=== PATIENT | male | born 1950 | race Caucasian/White ===

== ENCOUNTER 2025-02-04 12:48 | Outpatient (AMB) | payer OTHER, SELFPAY ==
--- NOTE | 2025-02-04 13:08 | A.OFFPC_ITS ---
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 He admits to taking his medications as prescribed without adverse reactions. Prior PCP? - Dr. Morales, [facility] Last office visit/CPE - 05/2024 Last CPE - A year ago Last labs - 11/2024 Acute issue(s) - None Past Medical History - HTN, DM, HLD, palpitations, thyroid di sease, murmur, memory loss, sleep apnea (was prescribed CPAP, stopped using because it never worked for me ), cataract both eyes Surgical History - CABG, cholecystectomy, tonsillectomy, cataract surgery both eyes Family History - Dad: Cardiovascular disease, diabetes , hypertension, hyperlipidemia, - Mom: Thyroid disease Social History - Nonsmoker. Does not vape. Drinks 1 bee r twice weekly. Denies recreational drug use - Has been making healthy dietary choice s. Walks regularly. Difficulty staying asleep, sleeps an average of 8 hours, interrupted Health maintenance - Last eye exam was in 02/2024 with [facility]. He has an appointment scheduled with them in 02/2025 - Last dental visit was almost 50 years ago; encouraged to schedule an appointment with his dentist for routine dental care - Last tetanus vaccine was in 2023. [address] not available - He has not been vaccinated for shingle s - He is vaccinated for pneumonia. Record not available - He is up-to-date on the flu vaccine - Last colonoscopy about 11 years ago: n mayte. Referred to [facility] for a colonoscopy Specialists - [facility] - [facility] Medical History (Updated 02/04/25 @ 14:19 by Alli Schafer CNP) Memory loss H/O thyroid disease Diabetes Heart palpitations High cholesterol High blood pressure Surgical History (Updated 02/04/25 @ 13:32 by Rita Lopez MA) Hx of CABG History of tonsillectomy History of cholecystectomy Family History (Updated 02/04/25 @ 13:35 by Rita Lopez MA) Father High blood pressure High cholesterol Diabetes Cardiovascular disease Mother H/O thyroid disease Social History (Updated 02/04/25 @ 13:19 by Rita Lopez MA) Housing: Apartment Patient Tobacco Use Status: Never used Tobacco e-Cigarette/Vaping Use: Never Used Second Hand Smoke Exposure: No service: No Current occupational status: retired Cognitive needs: No Hearing needs: No Vision needs: Yes Questionnaire PHQ-9 Over the last 2 weeks, how often have you been bothered by any of the following problems? 1. Little interest or pleasure in doing things: not at all 2. Feeling down, depressed, or hopeless: not at all 3. Trouble falling or staying asleep, or sleeping too much: several days 4. Feeling tired or having little energy: several days 5. Poor appetite or overeating: not at all 6. Feeling bad about yourself - or that you are a failure or have let yourself or your family down: not at all 7. Trouble concentrating on things, such as reading the newspaper or watching television: not at all 8. Moving or speaking so slowly that other people could have noticed. Or the opposite - being so fidgety or restless that you have been moving around a lot more than usual: not at all 9. Thoughts that you would be better off or of hurting yourself in some way: not at all Total score: 2 Depression Screening Interpretation: Negative Depression Screening Done: Yes 67615 - PHQ-9 Billing: Yes Source: Developed by Drs. Addi Harden, Lilian Schwarz, Jacoby Guardado and colleagues, with an educational everett from [employer]. Thrive Questionnaire Date Thrive assessed: 02/04/25 I am a: Patient What is your living situation today?: I have a steady place to live Within the past 12 months, did the food you bought not last and you didn't have the money to get more?: Never true Within the past 12 months, did you worry whether your food would run out before you got money to buy more?: Never true Do you have trouble paying for medicines?: No Do you have trouble getting transportation to medical appointments?: No Do you have trouble paying your heating and electricity bill?: No Do you have trouble taking care of your child, family member or friend?: No Do you have trouble with day-to-day activities such as bathing, preparing meals, shopping, managing finances, etc.?: No Are you currently unemployed and looking for a job?: Yes Are you interested in more education?: No Please select the resources that you would like help with: Job search/training Currently or been in a relationship where the following occur: No concerns reported THRIVE Score: 0 AUDIT C Alcohol Use Questionnaire (AUDIT-C) 1. How often do you have a drink containing alcohol?: 2-3 times a week 2. How many drinks containing alcohol do you have on a typical day when you are drinking?: 1 or 2 3. How often do you have six or more drinks on one occasion?: Never Total Score: 3 Score Reviewed/Action Taken: Yes LUPE-7 AMB Questionnaire LUPE-7 Date LUPE - 7 assessed: 02/04/25 Feeling nervous, anxious, or on edge: 0 = Not at all Not being able to stop or control worryin = Not at all Worrying too much about different things: 0 = Not at all Trouble relaxin = Not at all Being so restless that it is hard to sit still: 0 = Not at all Becoming easily annoyed or irritable: 0 = Not at all Feeling afraid as if something awful might happen: 0 = Not at all Total LUPE-7 score (0-4 normal; 5-9 mild; 10-14 moderate; 15-21 severe): 0 Source: Developed by Drs. Addi Harden, Lilian Schwarz, Jacoby Guardado and colleagues, with an educational everett from [employer]. LUPE-7 Assessment Billing LUPE-7 Assessment Tool: LUPE-7 Assessment 03354 Review of Systems Const Details: Denies chills, Denies fatigue, Denies fever(s), Denies headache(s) and Denies weakness HEENT Denies change in vision, Denies dizziness, Denies headache(s), Denies hearing l oss, Denies nasal congestion, Denies sinus pain, Denies sinus pressure and Denies sore throat Card Denies chest pain, Denies lightheadedness, Denies dyspnea and Denies other (palpitations) Resp Denies cough, Denies dyspnea and Denies wheezing GI Denies abdominal pain, Denies melena, Denies hematochezia, Denies change in bowel habits, Denies dyspepsia and Denies nausea Denies hematuria and Denies dysuria Musc Denies abnormal gait, Denies myalgias, Denies arthralgias, Denies numbness and Denies tingling Skin/Breast Denies rash, Denies unusual bruising and Denies wounds Neuro Denies abnormal gait, Denies dizziness, Denies headache(s), Denies memory loss, Denies numbness, Denies Sensory deficit (Neuro), Denies tingling and Denies weakness Psych Denies anxiety, Denies depression and Reports memory loss Endo Denies cold intolerance, Denies fatigue, Denies heat intolerance, Denies polydipsia and Denies polyuria Mina/Lymph Denies easy bleeding and Denies easy bruising Aller/Immun Denies wheezing Physical exam (Primary Care) Vital Signs: Last Vital Signs Temp 97.5 F 02/04/25 13:20 Pulse 50 02/04/25 13:20 Resp 16 02/04/25 13:20 BP 126/60 02/04/25 13:47 Pulse Ox 99 02/04/25 13:20 Oxygen Delivery Method Room Air 02/04/25 13:20 BMI result Body Mass Index 32.5 Tobacco/Smoking Status: Tobacco use Status Tobacco use date assessed 02/04/25 02/04/25 13:16 Patient Tobacco Use Status Never used Tobacco 02/04/25 13:20 e-Cigarette/Vaping Use Never Used 02/04/25 13:20 PHQ-9: PHQ-9 Score PHQ-9: Total score 2 02/04/25 13:38 Depression Screening Interpretation: Negative Thrive Assessment: Date of Thrive Assessment Date Thrive assessed 02/04/25 02/04/25 13:38 Currently or been in a relationship where the following occur: No concerns reported Const Other: General: no acute distress, well developed, alert and awake Nutritional Appearance: well nourished Orientation/consciousness: patient oriented x3 [facility] Head: Yes normocephalic and Yes atraumatic Ears: hearing grossly normal bilaterally, Impacted cerumen both ears occluding the TMs General nose exam: Normal external nose present and Normal nares present Mouth: Normal oral and palatal mucosa present and moist mucous membranes Teeth and gingiva: Partial front upper denture, several missing teeth Throat: Yes oropharynx normal Eyes Pupils: Equal, round and reactive pupils present and Pupil accommodation reflex normal EOM: EOMs intact bilaterally Neck Neck: Yes normal visual inspection, Yes no lymphadenopathy and Yes trachea midline Thyroid: Thyroid normal Carotids: no bruits Lymphatic: no lymphadenopathy noted Chest Chest palpation & inspection: normal inspection of the chest Resp Effort & Inspection: normal respiratory effort Auscultation: clear to auscultation bilaterally Cardio Rate: regular rate Rhythm: regular rhythm Heart sounds: S1 normal heart sound present, S2 normal heart sound present, no gallops, no murmurs and no rubs Bruits: no abdominal aortic bruits and no carotid bruits GI Palpation (GI): No Abdominal aortic bruit present, Soft to palpation, nontender, No hepatosplenomegaly present and No Rebound tenderness present Auscultation: normal bowel sounds General: Yes no CVA tenderness Back/Spine/Pelvis Back: no CVA tenderness Cervical Spine: cervical ROM normal and No Cervical spine tenderness Thoracic/Lumbar Spine: thoraco-lumbar ROM normal, No pain with thoraco-lumbar ROM, No thoracic spinal tenderness and No lumbar spinal tenderness Skin General: warm and dry. Normal skin color. Normal skin turgor Lesions: no lesions Rashes: no rashes Trauma: no lacerations or abrasions Wounds: no wounds Nails: normal Neuro General: patient oriented x3, gait normal and CN's II-XI intact bilaterally Cranial nerves: Yes Equal, round and reactive pupils present Cognition (Neuro): normal cognition Gait exam (Neuro): Normal gait present Motor exam (neuro): 5/5 motor strength present throughout Sensory Exam: No Sensory deficit (Neuro) Deep tendon reflexes (DTR's): Right patellar reflex intensity grade: 2+ and Left patellar reflex intensity grade: 2+ Extrem General: Yes normal to inspection, No edema and No calf tenderness Psych Appearance: grossly normal Affect: normal affect Attitude: cooperative Thought process: Normal thought process present Immunizations Boostrix Tdap 2.5 Lf unit-8 mcg-5 Lf/0.5 mL intramuscular syringe Performing Provider: Alli Schafer CNP Performing Location: [facility] Administered by: Jigar Morton RN on 02/04/25 14:18 Dose Route Admin Location Dispensed Lot Number Expiration Date [facility] Gas [employer]itter 0.5 mL IM Left Deltoid 0.5 mL [id number] 03/19/27 [id number] [employer] Total Dispensed Waste 0.5 mL 0 % VIS Given Date VIS Provided VIS Publication Date 02/04/25 Single Vaccine 21 Eligibility Eligibility Date Funding Source Not [facility] Eligible 02/04/25 Private Coding Level of Care Code Tele New Pt Level 4 (54940) New Pt Prev Care >65yr (56094) Diagnoses Normal physical examination, routine Z00.00 High blood pressure I10 Diabetes E11.9 Impacted cerumen of both ears H61.23 Colon cancer screening Z12.11 Vaccine counseling Z71.85 Sleep apnea G47.30 Obesity (BMI 30-39.9) E66.9 Laboratory tests ordered as part of a complete physical exam (CPE) Z00.00 Additional Codes LUPE-7 Assessment Billing - LUPE-7 Assessment Tool: LUPE-7 Assessment 71406 ([id number]) PHQ-9 - 14268 - PHQ-9 Billing: Yes ([id number]) Assessment & Plan Assessment & Plan (1) Normal physical examination, routine: Code(s): Z00.00 - Encounter for general adult medical examination without abnormal findings Category: Medical Plan: No significant functional limitation noted, except for slightly unsteady gait with tandem test. Continue current treatment regimen. Perform lab work before next visit. Follow-up for bilateral ear lavage and labs review in 2-4 weeks. Return sooner with symptoms or concerns. Verbalized understanding and agreed with the plan. (2) High blood pressure: Code(s): I10 - Essential (primary) hypertension Category: Medical Plan: Resting blood pressure is 126/60, within goal of less than 130/80. Continue current treatment regimen. Low-sodium diet encouraged. Will continue to monitor. Verbalized understanding and agreed with the plan. (3) Diabetes: Code(s): E11.9 - Type 2 diabetes mellitus without complications Category: Medical Plan: Continue current treatment regimen. Followed by [facility]. (4) Impacted cerumen of both ears: Code(s): H61.23 - Impacted cerumen, bilateral Category: Medical Plan: Impacted cerumen to both ears occluding the TMs. No significant hearing impairment. Debrox as prescribed. Follow-up for bilateral ear lavage in 2-4 weeks. Verbalized understanding and agreed with the plan. (5) Colon cancer screening: Code(s): Z12.11 - Encounter for screening for malignant neoplasm of colon Category: Medical Plan: Last colonoscopy about 11 years ago: normal. Rferred to [facility] for a colonoscopy. (6) Vaccine counseling: Code(s): Z71.85 - Encounter for immunization safety counseling Category: Medical Plan: He has not been vaccinated for shingles. Instructed on the importance of vaccination and encouraged to get vaccinated for shingles at the local pharmacy. Verbalized understanding and agreed with the plan. (7) Sleep apnea: Code(s): G47.30 - Sleep apnea, unspecified Category: Medical Plan: Reports difficulty staying asleep, sleeps an average of 8 hours, interrupted. He prescribed CPAP but stopped using it because it never worked for him. Instructed on sleep hygiene. May take melatonin as needed. Follow-up as needed. Verbalized understanding and agreed with the plan. (8) Obesity (BMI 30-39.9): Code(s): E66.9 - Obesity, unspecified Category: Medical Plan: He currently weighs 193 lb, BMI is 32.5. Healthy diet and routine exercise/weight management encouraged. Follow-up as needed. Verbalized understanding and agreed with the plan. (9) Laboratory tests ordered as part of a complete physical exam (CPE): Code(s): Z00.00 - Encounter for general adult medical examination without abnormal findings Category: Medical Plan: Fasting labs ordered as part of a complete physical exam. Advised to fast for at least 10 hours before getting labs drawn. May drink water Verbalized understanding and agreed with treatment plan. Orders: Orders Lipid Panel Today Z00.00 - Encounter for general adult medical examination without abnormal findings Microalbumin, Random (w Creat) Today Z00.00 - Encounter for general adult medical examination without abnormal findings TSH reflex Free T4 Today Z00.00 - Encounter for general adult medical examination without abnormal findings UA CC w/rflx Micro + Cult Today Z00.00 - Encounter for general adult medical examination without abnormal findings PSA, Ultra Sensitive Today Z00.00 - Encounter for general adult medical examination without abnormal findings TDaP Immunization Today Z23 - Encounter for immunization Complete Blood Count Auto Diff Today Z00.00 - Encounter for general adult medical examination without abnormal findings Comprehensive [place]. Panel Fast Today Z00.00 - Encounter for general adult medical examination without abnormal findings Vitamin D 25-OH Total Today Z00.00 - Encounter for general adult medical examination without abnormal findings Hemoglobin A1c Today E11.9 - Type 2 diabetes mellitus without complications Referrals Gastroenterology Referral Z12.11 - Encounter for screening for malignant neoplasm of colon Medications: New carbamide peroxide 6.5% (Debrox) 5 drps otic (ears) DAILY 15 mL 0RF 4 days
[2025-02-04 13:20] VITALS: BP 143/64; PULSE 50; RESP 16; TEMP 36.4; O2SAT 99; BMI 32.5
[2025-02-04 13:47] VITALS: BP 126/60
--- OUTSIDE RECORDS SUMMARY | 2025-02-04 14:57 | XMS_ITS | Clinical Summary ---
Author Organization [facility] Address [address] [facility] [place] [address] Phone Care Team Providers Care Wireline Supervisor Name Role Phone Jose Crane Primary Care Provider [phone] Allergies No known active allergies Medications cyanocobalamin, vitamin B-12, (VITAMIN B-12 ORAL) Take by mouth if needed. Active aspirin 81 mg EC tablet Take 1 tablet (81 mg total) by mouth 1 (one) time each day. Active atorvastatin (LIPITOR) 80 mg tablet Take 1 tablet (80 mg total) by mouth 1 (one) time each day. 10/26/2017 Active dilTIAZem SR (CARDIZEM SR) 120 mg 12 hr capsule Take 1 capsule (120 mg total) by mouth 1 (one) time each day. 10/26/2017 Active empagliflozin (Jardiance) 25 mg tablet Take 1 tablet (25 mg total) by mouth 1 (one) time each day. 05/24/2021 Active ezetimibe (ZETIA) 10 mg tablet Take 1 tablet (10 mg total) by mouth 1 (one) time each day. Active levothyroxine (SYNTHROID, LEVOTHROID) 100 mcg tablet Take 1 tablet (100 mcg total) by mouth 1 (one) time each day. Do not take it on Tuesday Active metFORMIN (GLUCOPHAGE) 500 mg tablet Take 2 tablets (1,000 mg total) by mouth 2 (two) times a day with meals. Active metoprolol succinate (TOPROL-XL) 50 mg 24 hr tablet Take 1 tablet (50 mg total) by mouth 1 (one) time each day. 10/26/2017 Active insulin glargine (LANTUS) 100 unit/mL injection Inject 56 Units under the skin at bedtime. Active Active Problems Problem Noted Date Diagnosed Date Non-rheumatic aortic stenosis 05/28/2024 Type 2 diabetes mellitus wit hout complication ([facility] V24, [facility] V28) 04/16/2024 Assessment & Plan (05/28/2024 3:42 PM EST): Diabetes is inadequately controlled. I defer this management to his primary care team. KEN (obstructive sleep apnea) 04/16/2024 Assessment & Plan (05/28/2024 3:42 PM EST): The patient has untreated obstructive sleep apnea. He has tried a variety of masks without success. We discussed the importance of avoiding sedation and alcohol. I also indicated that the patient might benefit from sleeping with a backpack to keep him from sleeping on his back and to reduce the effects of his sleep apnea syndrome. Orders: ECG 12 lead Hypertension 04/16/2024 Assessment & Plan (05/28/2024 3:42 PM EST): Blood pressure is well-controlled on his present medical regimen. He is adherent to antihypertensive medical therapy. I am not making any changes in his medical regimen at this time. Orders: ECG 12 lead Hyperlipidemia 04/16/2024 Assessment & Plan (05/28/2024 3:42 PM EST): Hyperlipidemia has responded favorably to medical therapy with high-dose atorvastatin and ezetimibe. His last LDL cholesterol was 74 mg/dL. This will be followed by his primary care team. Orders: ECG 12 lead GERD (gastroesophageal reflux disease) CAD (coronary artery disease) 04/16/2024 Assessment & Plan (05/28/2024 3:42 PM EST): Jose has a history of coronary artery bypass graft surgery in October 2014. He had a PARK to his LAD and saphenous vein grafts were placed to his PDA and to his second circumflex marginal artery. He has had no evidence of angina and no evidence of congestive heart failure. He does have a shift in his QRS axis on his electrocardiogram but no clear-cut evidence of infarction or active ischemia. I feel that the patient is at fairly low risk for cardiac complications of gallbladder surgery. Orders: ECG 12 lead History of FL (myocardial infarction) 04/16/2024 Encounters Date Type Department Care Team Description 12/24/2024 Telephone [facility] - [facility] [address] [facility] [address] [place] [address] Jigar Sifuentes MD 12/11/2024 2:00 PM EDT Office Visit [facility] - [place] [address] [place] [address] Carlos Hutchison DPM Controlled type 2 diabetes with neuropathy ([facility] V24, [facility] V28) (Primary Dx); Pain in toes of both feet; Arthritis of both feet; Dermatophytosis, nail from Last 3 Months Surgical History Surgery Date Site/Laterality Comments CORONARY ARTERY BYPASS GRAFT PROCEDURE: HISTORICAL CABG COLONOSCOPY 01/12/2014 PROCEDURE: HISTORICAL COLONOSCOPY; COMMENT: neg exam, tiny polyp removed from rectum. Medical History Medical History Date Comments CAD (coronary artery disease) DX :CAD (coronary artery disease) History of FL (myocardial infarction) DX:History of FL (myocardial infarction) Hypertension DX:Hypertension Hyperlipidemia DX:Hyperlipidemi a GERD (gastroesophageal reflux disease) DX:GERD (gastroesophageal reflux disease) H/O Araceli thyroiditis DX:H/O Araceli thyroiditis Type 2 diabetes mellitus wit hout complication ([facility] V24, [facility] V28) DX:Type 2 diab etes mellitus without complication (HCC) KEN (obstructive sleep apnea) DX :KEN (obstructive sleep apnea) Family History Medical History Relation Name Comments Diabetes Father Relation Name Status Comments Father Social History Tobacco Use Types Packs/Day Years Used Date Smoking Tobacco: Never Smokeless Tobacco: Never Alcohol Use Standard Drinks/Week Comments Yes 0 (1 standard drink = 0.6 oz pur e alcohol) an occasional beer Sex and Gender Information Value Date Recorded Sex Assigned at Male 07/31/2024 7:17 AM EST Legal Sex Male 5:39 AM EST Gender Identity Male 07/31/2024 7:17 AM EST Sexual Orientation Not on file Obstetrics History Last Filed Vital Signs Vital Sign Reading Time Taken Comments Blood Pressure 116/56 05/28/2024 2:38 PM EST Pulse 67 05/28/2024 2:38 PM EST Temperature - - Respiratory Rate - - Oxygen Saturation 97% 05/28/2024 2:38 PM EST Inhaled Oxygen Concentration - - Weight 88.5 kg (195 lb) 10/08/2024 2:13 PM EDT Height 162.6 cm (5' 4 ) 10/08/2024 2:13 PM EDT Body Mass Index 33.47 10/08/2024 2:13 PM EDT Plan of Treatment Upcoming Encounters Date Type Department Care Team (Late st Contact Info) Description 02/11/2025 9:40 AM EDT Office Visit [facility] - [facility] [address] [place] [address] [address] [place] [phone] Neftali Garner NP [address] [place] [address] [address] [place] [id number] 02/12/2025 1:45 PM EDT Office Visit Orth[facility] Surgery - [place] [address] [facility] [address] [place] [phone] Carlos Hutchison, SHIV [address] [facility] [address] [place] [address] 04/16/2025 1:30 PM EST Ancillary Procedure [facility] Cardiology [facility] [address] [facility] [address] [place] [phone] Health Maintenance Due Date Last Done Comments Diabetes: Annual Foot Exam 02/02/1962 Diabetes: Annual Retina Eye Exam 02/02/1962 DTaP,Tdap,and Td Vaccines (1 - Tdap) 02/02/1971 Pneumococcal Vaccine: 50+ Years (1 of 2 - PCV) 02/02/1971 Zoster Vaccines (1 of 2) 02/02/2002 RSV Immunization Adult Patients (1 - Risk 60-74 years 1-dose series) 2012 Cholesterol Screening (Lipid Panel) 05/09/2022 Colorectal Cancer Screening: Colonoscopy 05/09/2022 Falls Risk Assessment 05/09/2022 Hepatitis C Screening 05/09/2022 Medicare Annual Wellness Visit 05/09/2022 Social Influencers of Health Screening 05/09/2022 Diabetes: Blood Sugar Control Test (HGBA1C) 03/19/2023 09/17/2022 Depression Screening 05/30/2024 COVID-19 Vaccine ( season) 2025 04/09/2024, 03/31/2023, 10/15/2021, Additional history exists Influenza Vaccine (#1) 2025 , 05/04/2022, 06/01/2021 Diabetes: Annual GFR (Glomerular Filtration Rate) 09/18/2025 09/18/2024, 09/17/2022 Hypertension/CHF/CAD Annual BMP Blood Test 09/18/2025 09/18/2024, 09/17/2022 Diabetes: Annual Urine Albumin-Creatinine Ratio (uACR) 09/19/2025 09/19/2024 HIB Vaccines Aged Out No longer eligi ble based on patient's age to complete this topic HPV Vaccines Aged Out No longer eligi ble based on patient's age to complete this topic Hepatitis A Vaccines Aged Out No long er eligible based on patient's age to complete this topic Hepatitis B Vaccines Aged Out No long er eligible based on patient's age to complete this topic IPV Vaccines Aged Out No longer eligi ble based on patient's age to complete this topic MMR Vaccines Aged Out No longer eligi ble based on patient's age to complete this topic Meningococcal ACWY Vaccine Aged Out N o longer eligible based on patient's age to complete this topic Meningococcal B Vaccine Aged Out No l onger eligible based on patient's age to complete this topic RSV Immunization Patients Under 20 months Aged Out No longer eligible based on patient's age to complete this topic Varicella Vaccines Aged Out No longer eligible based on patient's age to complete this topic Procedures Procedure Name Priority Date/Time Associated Diagnosis Comments ANNUAL BMP BLOOD TEST Routine 09/17/2022 HEMOGLOBIN A1C Routine 09/17/2022 from Last 3 Months or Most Recently Relevant to Health Maintenance Results * Annual BMP Blood Test (09/17/2022) Annual BMP Blood Test Abstracted Historical Provider HEALTH MAINTENANCE Final Result * Hemoglobin A1c (09/17/2022) Hemoglobin A1C 0.0 % Comment:No interpretation, a bstracted Blood Venous blood specimen / Unknown Historical Provider LAB BLOOD ORDERABLES Aida l Result from Last 3 Months or Most Recently Relevant to Health Maintenance Insurance [employer] Care Teams Wireline Supervisor Relationship Specialty Start Date End Date Jose Crane DO [address] [place], [place] PCP - General 09/06/17
--- OUTSIDE RECORDS SUMMARY | 2025-02-04 14:57 | XMS_ITS | Clinical Summary ---
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 Active atorvastatin (LIPITOR) 80 MG tablet Take 80 mg by mouth daily. 09/01/19 23 Active aspirin 81 MG EC tablet Take 81 mg by mouth daily. Active metoprolol succinate (TOPROL-XL) 50 MG 24 hr tablet Take 50 mg by mouth daily. Active metFORMIN (GLUCOPHAGE-XR) 500 MG 24 hr tablet Take 2,000 mg by mouth daily with dinner. Active insulin glargine 100 unit/mL (3 mL) InPn injection penIndications:Typ e 2 diabetes mellitus with peripheral neuropathy Inject 56-60 Units under the skin nightly at bedtime. 60 mL 2 02/21/20 24 Active Additional Information Patient taking differently:56-60 Units SubcutaneousOnce, In the morning, Reported on 10/09/2024 empagliflozin (JARDIANCE) 25 mg tabletIndications: Type 2 diabetes mellitus with peripheral neuropathy Take 1 tablet (25 mg total) by mouth daily. 90 tablet 1 05/15/20 24 Active levothyroxine (SYNTHROID, LEVOTHROID) 100 MCG tabletIndications: Acquired hypothyroidism Take 1 tablet (100 mcg total) by mouth every morning. 90 tablet 1 10/10/19 25 Active HUMALOG KWIKPEN INSULIN 100 unit/mL kwikpenIndications :Type 2 diabetes mellitus with peripheral neuropathy Inject 6 Units under the skin 3 (three) times a day with meals. 15 mL 3 10/10/19 25 Active insulin pen needles, disposable, 32 gauge x NdleIndications:Ty pe 2 diabetes mellitus with peripheral neuropathy 1 each by Miscellaneous route 4 (four) times a day before meals and nightly. 200 each 3 10/10/19 25 Active Active Problems Problem Noted Date Diagnosed Date Osteopenia of multiple sites 05/19/2023 Assessment & Plan (12/09/2023 7:08 PM EDT): See above. No indication for treatment. Discussed importance of adequate calcium, vitamin D intake, regular weightbearing exercises and fall prevention. Repeat DEXA after 04/11/2025 at [facility] Assessment & Plan (05/19/2023 4:40 PM EST): Screening DEXA done on 04/11/2023 because of primary hyperparathyroidism. Osteopenia at the femoral neck and lumbar spine and normal forearm reading. 10-year calculated fracture risk by FRAX is not high enough to warrant antiresorptive treatment or consider parathyroid surgery. We discussed basic physiology of bone loss. The importance of adequate calcium and vitamin D intake, regular weightbearing exercises and fall prevention. Will monitor parathyroid related labs every 6 to 12 months and DEXA in 2 years. Primary hyperparathyroidism 01/06/2023 Overview (05/19/2023): Labs in August 2022 continued to show hypercalcemia 11.1. At that time PTH was not measured. Patient stopped taking his calcium supplement since the end of 11/2022. Labs on 12/23/2022 showed normal calcium of 9.8 with elevated PTH of 92 and low normal phosphorus 2.9. 24-hour urine calcium was normal 150 mg. Phosphorus clearance was elevated at 19.16, TRP low 80.9% both consistent with primary hyperparathyroidism. Calcium clearance/creatinine clearance was 0.011. DEXA on 04/11/2023 showed osteopenia at the lumbar spine with T-score -1.2 and femoral neck with T-score -1.7 Assessment & Plan (06/29/2024 5:57 PM EST): Labs in August 2022 continued to show hypercalcemia 11.1. At that time PTH was not measured. Patient stopped taking his calcium supplement since the end of 11/2022. Labs on 12/23/2022 showed normal calcium of 9.8 with elevated PTH of 92 and low normal phosphorus 2.9. 24-hour urine calcium was normal 150 mg. Phosphorus clearance was elevated at 19.16, TRP low 80.9% both consistent with primary hyperparathyroidism. Calcium clearance/creatinine clearance was 0.011. DEXA on 04/11/2023 showed osteopenia at the lumbar spine with T-score -1.2 and femoral neck with T-score -1.7. No history of fragility fractures. Recent calcium level 10.0 with albumin 3.8. 25 OHD and PTH not available. No clear-cut surgical indication at this point. We will continue to monitor labs. Repeat DEXA after 04/11/2025. Assessment & Plan (12/09/2023 7:07 PM EDT): Patient continues to have high normal calcium with elevated PTH and normal vitamin D level and previous workup also suggested primary hyperparathyroidism. His recent DEXA from 04/11/2023 reviewed showing osteopenia of the femoral neck with T-score - 1.7 and lumbar spine with T-score -1.2. No history of fragility fractures. No clear-cut surgical indication at this point. We will continue to monitor labs. Repeat DEXA in 2 years. Assessment & Plan (05/19/2023 4:37 PM EST): Patient continues to have high normal calcium with elevated PTH and normal vitamin D level and previous workup also suggested primary hyperparathyroidism. He is recent DEXA fro 04/11/2023 reviewed showing osteopenia of the femoral neck with T-score -1.7 lumbar spine with T-score -1.2. No history of fragility fractures. No clear-cut surgical indication at this point. We will continue to monitor labs. Repeat DEXA in 2 years. Assessment & Plan (02/22/2023 4:05 PM EDT): Labs in August continued to show hypercalcemia 11.1. At that time PTH was not measured. Patient stopped taking his calcium supplement since the end of 11/2022. Labs on 12/23/2022 showed normal calcium of 9.8 with elevated PTH of 92 and low normal phosphorus 2.9. 24-hour urine calcium was normal 150 mg. Phosphorus clearance was elevated at 19.16, TIP level 80.9% both consistent with primary hyperparathyroidism. Calcium clearance/creatinine clearance was 0.011. We again discussed diagnosis, possible surgical indications. So far patient has no surgical indication. Denies any fractures or kidney stone. We are waiting for his DEXA to be scheduled. If that is normal we will continue to monitor PTH and serum calcium level and continue to observe for surgical indication. Assessment & Plan (01/06/2023 9:16 PM EDT): Last labs in August continue to show with hypercalcemia 11.1. At that time PTH was not measured. Patient has not had 24-hour urine studies and DEXA yet. Orders entered. We repeatedly discussed basic parathyroid physiology, surgical indications. Will rediscuss management after labs and DEXA reviewed. Hyperlipidemia 09/17/2022 Hypertension 09/17/2022 Type 2 diabetes mellitus with peripheral neuropa thy 09/17/2022 Overview (05/19/2023): 2 DM, Dx 2000. CAD, status post three-vessel CABG in 10/2014. Reported gastroparesis on lowest dose Trulicity-no major symptoms on 4.5 mg Trulicity. Assessment & Plan (10/11/2024 1:21 PM EDT): Control is poor based upon the patient's recall of his SMBG readings and his recent A1C of 10.4%. No frequent or severe hypoglycemia. In the past he was not able to tolerate trulicity. Discussed to help improve his control will start prandial insulin at meals. Discussed timing of prandial insulin in relation to meals. Continue to work on eating healthier and being active. To call or message with any issues managing his glucose levels. Up to date with opho. Recent labs reviewed, labs ordered to be done prior to next visit Assessment & Plan (06/29/2024 5:58 PM EST): Poor control based on recent A1c of 11.5. Patient explains this with holiday food. He is taking Lantus 60 units in the morning, Jardiance 25 mg in the morning and metformin 2000 mg daily. Reports fasting glucose in the 160s. No frequent or severe hypoglycemia. -Encouraged to work on carbohydrate controlled meal plan. -Increase physical activity -Adjust Lantus by 2 to 4 units to get fasting glucose between the 80s to 130s -Discussed the importance to keep blood sugars between the 80s to 180 range to decrease risk of postsurgical complications after cholecystectomy -Reviewed symptoms, prevention and treatment of hypoglycemia. -Call with blood sugar problems Assessment & Plan (02/27/2024 12:12 PM EDT): Control is improving based upon the patient's recall of his SMBG readings. No frequent or severe hypoglycemia. Will maintain his regimen. Continue to work on eating healthy and being active. To call or message with any issues managing his glucose levels. Up to date with ophtho. Labs ordered today Assessment & Plan (12/09/2023 7:06 PM EDT): Worsened control, last A1c 10.2% in mid October. Patient was without his Tresiba and Trulicity for about a month. Tresiba was switched to Lantus, taking 56 units in the morning. He just restarted the Trulicity 4.5 mg weekly. He remains on metformin and Jardiance. No frequent or severe hypoglycemia. Weight is down 5 pounds. Lipids close to target and urine microalbumin/creatinine ratio normal as of mid October. Up-to-date with eye exam, reports frequent blurriness with or without glasses. Next eye exam due in 02/2024. Recommended to continue current treatment. Call the office if having issues filling his prescriptions. Titrate Lantus by 2 to 4 units to keep fasting sugars between 80-130s. Reviewed symptoms, prevention and treatment of hypoglycemia. Call if blood sugar below 70 or over 250 repeatedly continue to work on healthy meal and regular exercise. Labs before next visit in 3 months. Assessment & Plan (05/19/2023 4:28 PM EST): Improved control. Last A1c 7.9% in 03/2023. Taking 52 to 56 units of Tresiba in the morning consistently. Remains on 25 mg Jardiance daily and 1000 mg metformin twice a day as well as 4.5 mg Trulicity once a week. He reported slow gastric emptying diagnosed 3 to 4 years ago while on the lowest dose of Trulicity. His current symptom is early satiety what does not bother him much since help to cut back on his portions by 50%. We discussed that Trulicity can provoke gastroparesis and advised to hold the Trulicity if worsening symptoms, nausea, vomiting, abdominal pain develops. His lipids are at target, LDL 56 in 10/2022 while on 80 mg of atorvastatin. He is status post three-vessel CABG in 10/2014, denies any chest pain. Does have some dyspnea on exertion. Blood pressure at target. Urine microalbumin/creatinine ratio normal in 03/2023. He is up-to-date with eye exam, report from 02/2023 reviewed, no diabetic retinopathy. Discussed titration off Tresiba to keep fasting glucose between 80-130. Continue to work on healthier food choices and increase exercise. Reviewed symptoms, prevention and treatment of hypoglycemia. Call if blood sugar below 70 or over 250 repeatedly. Assessment & Plan (02/22/2023 4:10 PM EDT): Poor control suggested by higher A1c of 9% in 11/2022. Patient reports fasting blood sugars in the 140-160 range while taking between 52 and 56 units of Tresiba in the morning consistently. He remains on maximum dose of Jardiance, Trulicity and metformin and he admits to drinking about 40 ounces of sugary drinks daily lately. Suggested to cut out the sugary drinks and replace it with water. Continue to work on healthy meal choices and portion control. Increase physical activity as tolerated. Reviewed how to titrate the Tresiba to get fasting sugars between 80-130. He will increase the dose by 4 units for now and continue to adjust. Reviewed symptoms, prevention and treatment of hypoglycemia. Call if blood sugar below 70 or over 250 repeatedly. He is dilated eye exam is scheduled in 02/2023. He sees instrument maintenance supervisor for routine care every 2 months. Assessment & Plan (01/06/2023 9:21 PM EDT): Suboptimal control by last A1c of 8.6% in 08/2022. Reported fasting glucose is in the 150s while taking 52 to 56 units of Tresiba U200 daily. He just increased his Tresiba to 4.5 mg weekly last Tuesday. He remains on metformin 2000 mg daily and Jardiance 25 mg daily. Suggested to continue to work on healthy meal plan and increase physical activity as tolerated. Continue current treatment. Call if blood sugar below 70 or over 250 repeatedly. Scheduled to see his budget consultant in December. He is followed by podiatry for routine care every 2 months. His renal function is normal. Will have fasting labs soon. Assessment & Plan (09/17/2022 1:59 PM EDT): Control is reasonable based upon the patient's recall of his SMBG readings. No frequent or severe hypoglycemia. He has to change his victoza to trulicity due to insurance coverage. He was on trulicity in the past and is fine with the switch. Will send the prescription and send any needed Pas. Continue to work on eating healthy and being active. To call or message with any issues managing his glucose levels. Up to date with ophtho. Labs ordered today Acquired hypothyroidism 09/17/2022 Assessment & Plan (10/11/2024 1:13 PM EDT): Will check levels to determine if medication adjustments are needed Assessment & Plan (06/29/2024 5:52 PM EST): Clinically and biochemically euthyroid. Last TSH 1.54 in 01/2024 while taking 6 tablets/week of the 100 mcg levothyroxine. -Continue current treatment -Reviewed symptoms of under and over replacement, patient to call if concern. -Repeat TSH with next labs Assessment & Plan (02/27/2024 12:06 PM EDT): Will check levels to determine if medication adjustments are needed Assessment & Plan (11/21/2023 1:57 PM EDT): Clinically euthyroid. Last TSH normal at 3.55 in 04/2023. Continue current treatment. Recheck TSH with next A1c in 3 months. Assessment & Plan (05/19/2023 4:31 PM EST): Clinically and biochemically euthyroid. Last TSH remains high normal 3.55 in 04/2023 while taking a daily average dose of 86 mcg levothyroxine ( 100 mcg x 6 / week). Suggested to change prescription to the 88 mcg tablet and take 1 tablet daily but patient prefers to continue current dose. Reviewed symptoms of under and over replacement, patient to call if concerned. Assessment & Plan (02/22/2023 4:07 PM EDT): Clinically and biochemically euthyroid. Last TSH 3.96 on 12/23/2022 while taking 100 mcg levothyroxine 6 days/week. Reviewed symptoms of under and over replacement, patient to call if concerned. Monitor TSH at least yearly or as clinically indicated. Assessment & Plan (01/06/2023 9:18 PM EDT): Clinically and biochemically euthyroid on 100 mcg levothyroxine 6 days/week. Last TSH 0.84 in 08/2022. Reviewed symptoms of under and over replacement, patient to call if concerned. Monitor TSH Assessment & Plan (09/17/2022 1:45 PM EDT): Will check levels to determine if medication adjustments are needed. Taking 1 tablet 6 days a week and skipping Saturdays Vitamin D deficiency, unspecified 09/17/2022 Assessment & Plan (10/11/2024 1:13 PM EDT): He has not been taking his vitamin D supplement as he thought he was told to stop it. He is going to resume taking his vitamin D supplement. Will order labs to check levels with his next A1C Assessment & Plan (06/29/2024 5:52 PM EST): Last vitamin D level was low normal at 30.6 in 10/2023 while getting about 2500 IU D3 from his supplement. He will continue this dose. Monitor. Assessment & Plan (12/09/2023 7:08 PM EDT): Last vitamin D level was low normal at 30.6 in 10/2023 while getting about 2500 IU D3 from his supplement. He will continue this dose. Monitor. Assessment & Plan (05/19/2023 4:33 PM EST): Level normalized by 12/23/2022 after he took 6 weeks of 50,000 units of D2 which was ended in mid November. Was taking 400 IU D3 daily for a while and since March he thinks he is getting 1000 IU daily from a vitamin D gummy. He is last vitamin D level was low normal at 28.7. Would continue to 1000 IU daily maintenance dose. Assessment & Plan (02/22/2023 4:06 PM EDT): Level normalized by 12/23/2022 after he took 6 weeks of 50,000 units 52 which was ended in mid November. Currently not on maintenance dose. Suggested to add 1000 IU D3 daily [id number]. Will monitor. Assessment & Plan (01/06/2023 9:17 PM EDT): Vitamin D level was low at 28 in 08/2022 when 50,000 units vitamin D2 weekly started. Will recheck level and adjust dose. Avoid over replacement because of risk of worsening hypercalcemia Assessment & Plan (09/17/2022 1:45 PM EDT): Will check levels to determine if medication adjustments are needed Social History Tobacco Use Types Packs/Day Years Used Date Smoking Tobacco: Never Smokeless Tobacco: Never Alcohol Use Standard Drinks/Week Comments Yes 4 (1 standard drink = 0.6 oz pur e alcohol) couple beers a week Education Answer Date Recorded Are you interested in more education? Not on marcelino e 09/25/2022 Are you concerned about learning? Not on file 09/25/2022 No 09/25/2022 No 09/25/2022 Digital Access Answer Date Recorded No 10/26/2022 No 10/26/2022 Reliable internet access at home? Not on file 10/26/2022 Device with a working camera? Not on file Sex and Gender Information Value Date Recorded Sex Assigned at Male 09/08/2022 3:11 PM EDT Legal Sex Male 3:04 PM EDT Gender Identity Male 09/08/2022 3:06 PM EDT Sexual Orientation Straight 09/08/2022 3: 11 PM EDT Last Filed Vital Signs Vital Sign Reading Time Taken Comments Blood Pressure 132/74 10/09/2024 1:20 PM EDT Pulse 66 10/09/2024 1:20 PM EDT Temperature 36.5 C (97.7 F) 05/18/2023 2:50 PM EST Respiratory Rate - - Oxygen Saturation 98% 10/09/2024 1:20 PM EDT Inhaled Oxygen Concentration - - Weight 85.7 kg (189 lb) 10/09/2024 1:20 PM EDT Height 164.5 cm (5' 4.76 ) 10/09/2024 1:20 PM ED T Body Mass Index 31.68 10/09/2024 1:20 PM EDT Plan of Treatment Upcoming Encounters Date Type Department Care Team (Late st Contact Info) Description 03/14/2025 11:20 AM EDT Office Visit [facility] [address] [place] [address] Roxane Baltazar MD [address] [place] [phone] 04/16/2025 2:30 PM EST Office Visit [facility] [address] [place] [address] Vibha Workman PA-C [address] [place] [phone] 07/22/2025 1:40 PM EST Office Visit [facility] [address] [place] [address] Roxane Baltazar MD [address] [place] [phone] Health Maintenance Due Date Last Done Comments Adult Td,Tdap Booster 1950 DEPRESSION SCREENING 1964 HEPATITIS C SCREENING 02/02/1970 PNEUMOCOCCAL VACCINES (50+ years) (1 of 2 - PCV) 02/02/1971 COLOGUARD 02/02/1997 COLONOSCOPY 02/02/1997 COLORECTAL CANCER SCREENING 02/02/1997 FIT TEST 02/02/1997 FOBT 02/02/1997 SIGMOIDOSCOPY 02/02/1997 VIRTUAL COLONOSCOPY 02/02/1997 ZOSTER VACCINES (1 of 2) 02/02/2002 RSV VACCINE (1 - Risk 60-74 years 1-dose series) 2012 DIABETIC EYE EXAM 09/17/2022 URINE MICROALBUMIN/CREATININE RATIO 09/17/2022 HEMOGLOBIN A1C 12/17/2022 09/17/2022, 09/17/2022 INFLUENZA VACCINE (#1) 2024 COVID-19 VACCINE (1 - season) 2025 BLOOD PRESSURE 04/11/2025 10/09/2024 CREATININE LEVEL 09/18/2025 09/18/2024, , 05/18/2023, Additional history exists TSH LEVEL 09/18/2025 09/18/2024, 01/29, 12/23/2022, Additional history exists SMOKING STATUS SCREENING (Once After 26 Yrs) Completed 10/09/2024 HEPATITIS A VACCINES Aged Out No long er eligible based on patient's age to complete this topic HIB VACCINES Aged Out No longer eligi ble based on patient's age to complete this topic MENINGOCOCCAL VACCINES (ACWY) Aged Out No longer eligible based on patient's age to complete this topic MENINGOCOCCAL VACCINES (B) Aged Out N o longer eligible based on patient's age to complete this topic Medical Devices Not on file Procedures Procedure Name Priority Date/Time Associated Diagnosis Comments TSH WITH REFLEX Routine 09/18/2024 3:57 PM EDT Acquired hypothyroidism COMPREHENSIVE METABOLIC PANEL Routine 09/18/2024 3:57 PM EDT Type 2 diabetes mellitus with peripheral neuropathy HEMOGLOBIN A1C Routine 09/17/2022 2:11 PM EDT Type 2 diabetes mellitus with peripheral neuropathy from Last 3 Months or Most Recently Relevant to Health Maintenance Results * TSH with reflex (09/18/2024 3:57 PM EDT) Blood us Roxane Karacsonyi MD LAB BLOOD ORDERABLES Final Res ult [address] [address] * Comprehensive metabolic panel (09/18/2024 3:57 PM EDT) Blood us Roxane Baltazar MD LAB BLOOD ORDERABLES Final Res ult Performing Organization Address [facility]/ZIP Co de Phone Number [address] [address] * (ABNORMAL) Hemoglobin A1c (09/17/2022 2:11 PM EDT) HEMOGLOBIN A1C 8.6(H) 4.3 - 5.8 % [facility] Blood 09/17/2022 2:11 PM EDT 09/17/2022 2:14 PM EDT Vibha Workman PA-C LAB BLOOD ORDERABL ES Final Result Performing Organization Address [facility] Co de Phone Number [address] [address] from Last 3 Months or Most Recently Relevant to Health Maintenance Insurance MEDICARE PART A & B [facility] MEDICARE REPLACEMENT MEDICARE PART A & B [facility] MEDICARE REPLACEMENT MEDICARE PART A & B Member Subscriber Plan / Payer (Ef fective 2017-Present) Name:Jose Butt Member ID:[id number] Relation to Subscriber:Self Name:Jose Butt Subscriber ID:[id number] Payer ID:[id number] Group ID:Not on file Type:Medicare Address: [employer] [address] MEDICARE REPLACEMENT MEDICARE PART A & B [facility] MEDICARE REPLACEMENT MEDICARE PART A & B MEDICARE REPLACEMENT Member Subscriber Plan / Payer (Ef fective 2024-Present) Name:Jose Butt Relation to Subscriber:Self Name:Jose Butt Payer ID:[id number] (NAIC) Group ID:Not on file Type:Medicare Address: [place] [phone] MEDICARE PART A & B MEDICARE REPLACEMENT Member Subscriber Plan / Payer (Ef fective 2024-Present) Name:Jose Butt Relation to Subscriber:Self Name:Jose Butt Payer ID:[id number] (NAIC) Group ID:Not on file Type:Medicare Address: [place] [phone] Care Teams 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 It is not the complete legal health record.[facility]
== END 2025-02-04 14:18 | disposition home or self-care (01) ==
PROVIDERS: Visit Provider Nurse Practitioner Family
DX: Z00.00 Encounter for general adult medical examination without abnormal findings (principal); E11.9 Type 2 diabetes mellitus without complications; Z68.32 Body mass index [BMI] 32.0-32.9, adult; E66.9 Obesity, unspecified; I10 Essential (primary) hypertension; H61.23 Impacted cerumen, bilateral; Z12.11 Encounter for screening for malignant neoplasm of colon; Z71.85 Encounter for immunization safety counseling; G47.30 Sleep apnea, unspecified; Z23 Encounter for immunization

== ENCOUNTER → 2025-02-04 12:48 | Outpatient (BNVA) | payer MEDICARE, SELFPAY | PROVIDERS: Visit Provider Nurse Practitioner Family | DX: Z00.00 Encounter for general adult medical examination without abnormal findings (principal); I10 Essential (primary) hypertension; E11.9 Type 2 diabetes mellitus without complications; H61.23 Impacted cerumen, bilateral; G47.30 Sleep apnea, unspecified; E66.9 Obesity, unspecified; Z23 Encounter for immunization; Z71.85 Encounter for immunization safety counseling; Z68.32 Body mass index [BMI] 32.0-32.9, adult | CPT/HCPCS: 90471; 90715; 96127 ==

== ENCOUNTER 2025-02-05 10:18 | Outpatient (REF) | payer MEDICARE, SELFPAY ==
[2025-02-05 11:21] LABS: MANUAL DIFF FLAG NO
[2025-02-05 11:36] LABS: Hematocrit 44.6 % (42.0-52.0); Hemoglobin 15.1 g/dl (14.0-18.0); Imm Gran Abs Auto 0.03 X10*3/uL (0.00-0.03); Imm Gran Pct Auto 0.3 % (0.0-0.4); Lymphocytes Absolute Auto 2.9 X10*3/uL (1.2-4.9); Mean Corpuscular HGB Conc 33.9 g/dl (31.0-36.0); Mean Corpuscular Hemoglobin 30.4 pg (27.0-33.0); Mean Corpuscular Volume 89.9 fL (80.0-98.0); NRBC Abs Auto 0.000 X10*3/uL (0.0-0.012); NRBC Pct Auto 0.0 /100WBC (0.0-0.2); Platelet Count 283 X10*3/uL (160-400); Red Blood Count 4.96 X10*6/uL (4.60-5.80); White Blood Count 9.8 X10*3/uL (4.8-10.8)
[2025-02-05 11:44] LABS: Hemoglobin A1C 297.6629 umol/L; Total Hemoglobin (HGBA1C) 3911.3476 umol/L
--- OUTSIDE RECORDS SUMMARY | 2025-02-05 12:07 | XMS_ITS | Clinical Summary ---
Author Organization [facility] Address [address] [place] [address] Phone Care Team Providers Care Steam Conditioner Operator Name Role Phone Alli Schafer STAVE BLOCK SPLITTER Primary Care Provider [phone]- [phone] Allergies No known active allergies Medications ezetimibe [...] fall prevention. Repeat DEXA after 04/11/2025 at [facility] Assessment & Plan (05/19/2023 4:40 PM [...] exam is scheduled in 02/2023. He sees slide developer for routine care every 2 months. Assessment [...] over 250 repeatedly. Scheduled to see his neurobiologist in December. He is followed by podiatry [...] Suggested to add 1000 IU D3 daily [id number]. Will monitor. Assessment & Plan (01/06/2023 9:17 [...] AM EDT Office Visit [facility] [address] [place] [address] Roxane Baltazar MD [address] [place] [phone] 04/16/2025 2:30 PM EST Office Visit [facility] [address] [place] [address] Vibha Workman PA-C [address] [place] [phone] 07/22/2025 1:40 PM EST Office Visit [facility] [address] [place] [address] Roxane Baltazar MD [address] [place] [phone] Health Maintenance Due Date Last Done Comments [...] MD LAB BLOOD ORDERABLES Final Res ult [address] [address] * Comprehensive metabolic panel (09/18/2024 3:57 PM EDT) Blood us Roxane Baltazar MD LAB BLOOD ORDERABLES Final Res ult Performing Organization Address [facility]/ZIP Co de Phone Number [address] [address] * (ABNORMAL) Hemoglobin A1c (09/17/2022 2:11 PM EDT) HEMOGLOBIN A1C 8.6(H) 4.3 - 5.8 % [facility] Blood 09/17/2022 2:11 PM EDT 09/17/2022 2:14 PM EDT Vibha Workman PA-C LAB BLOOD ORDERABL ES Final Result Performing Organization Address [facility] Co de Phone Number [address] [address] from Last 3 Months or Most Recently Relevant to Health Maintenance Insurance MEDICARE PART A & B [facility] MEDICARE REPLACEMENT MEDICARE PART A & B [facility] MEDICARE REPLACEMENT MEDICARE PART A & B Member Subscriber Plan / Payer (Ef fective 2017-Present) Name:Jose Butt Member ID:[id number] Relation to Subscriber:Self Name:Jose Butt Subscriber ID:[id number] Payer ID:[id number] Group ID:Not on file Type:Medicare Address: [employer] [address] MEDICARE REPLACEMENT MEDICARE PART A & B [facility] MEDICARE REPLACEMENT MEDICARE PART A & B MEDICARE REPLACEMENT Member Subscriber Plan / Payer (Ef fective 2024-Present) Name:Jose Butt Relation to Subscriber:Self Name:Jose Butt Payer ID:[id number] (NAIC) Group ID:Not on file Type:Medicare Address: [place] [id number] MEDICARE PART A & B MEDICARE REPLACEMENT Member Subscriber Plan / Payer (Ef fective 2024-Present) Name:Jose Butt Relation to Subscriber:Self Name:Jose Butt Payer ID:[id number] (NAIC) Group ID:Not on file Type:Medicare Address: [place] [phone] Care Teams Steam Conditioner Operator Relationship Specialty Start Date End Date Alli Schafer NP [address] [place] [address] PCP - General Nurse Practitioner 10/09/24 Additional Source Comments The information contained in this document represents components of the legal health record. It is not the complete legal health record.[facility]
[2025-02-05 12:15] LABS: Alanine Aminotransferase 27 U/L (0-40); Albumin Level 4.3 g/dL (3.5-5.0); Alkaline Phosphatase 140 U/L (39-117); Anion Gap 12 (12-20); Aspartate Amino Transferase 27 U/L (5-37); Blood Urea Nitrogen 16 mg/dL (9-16); Calcium 9.9 mg/dL (8.4-10.2); Carbon Dioxide 29 mmol/L (22-29); Chloride 104 mmol/L (96-108); Cholesterol 128 mg/dL (<200); Estimated Glomerular Filt Rate > 60; HDL Cholesterol 39 mg/dL (>40); Potassium 4.4 mmol/L (3.3-5.1); Sodium 141 mmol/L (135-145); Total Protein 7.0 g/dL (6.5-8.0); Triglycerides 59 mg/dL (<150)
[2025-02-05 14:17] LABS: Free T4 (Free Thyroxine) 1.09 ng/dL (0.71-1.85)
[2025-02-05 14:49] LABS: Appearance Urine Clear; Glucose Urine UA >=1000 mg/dL (Negative); PH 6.5 (5.0-9.0); Specific Gravity - Urine >= 1.030 (1.005-1.025); UMIC TRIGGER UACC YES
[2025-02-05 15:17] LABS: Microalbum/Creatinine Ratio Ur 4.0 ug/mg cr (<30)
[2025-02-13 00:38] LABS: PSA, Ultra Sensitive 0.75 ng/mL
== END 2025-02-05 10:19 | disposition home or self-care (01) ==
LOC: HO.WFDLDS 10:18
PROVIDERS: Visit Provider Nurse Practitioner Family
DX: Z00.00 Encounter for general adult medical examination without abnormal findings (principal); E11.9 Type 2 diabetes mellitus without complications; Z12.5 Encounter for screening for malignant neoplasm of prostate; Z13.21 Encounter for screening for nutritional disorder
CPT/HCPCS: 36415; 80053; 80061; 81001; 82043; 82306; 82570; 83036; 84153; 84439; 84443; 85025

== ENCOUNTER 2025-02-22 12:14 | Outpatient (AMB) | payer OTHER, SELFPAY ==
--- NOTE | 2025-02-22 12:16 | A.OFFPC_ITS ---
Vital Signs 02/22/25 12:27 Height 5 ft 4.7 in Weight 190 lb 8 oz BMI 32.0 BP 129/60 Blood Pressure Location Rt brachial Position Sitting Respiration 16 Pulse 52 Pulse Source Pulse Oximeter Temp 97.3 F Temp Source Oral Pulse Oximetry (%) 98 Oxygen Delivery Method Room Air Intake Visit Reasons: 2-4 wks bilat ear lavage, labs review Intake Note: patient here for 2-4 wks bilat ear lavage and lab review Vocational Adviser Required: No Allergies No Known Allergies Allergy (Verified 02/22/25 12:49) Medication List - Last Reviewed 02/22/25 by Rita Lopez MA atorvastatin (Lipitor) 80 mg PO DAILY carbamide peroxide 6.5% (Debrox) 5 drps otic (ears) DAILY 4 days cholecalciferol (vitamin D3) 25 mcg PO DAILY 90 days insulin glargine (Lantus Solostar U-100 Insulin) 56 - 60 units subcut QAM insulin lispro (Humalog KwikPen (U-100) Insulin) 60 units subcut TID levothyroxine (Levoxyl) 112 mcg PO DAILY 30 days metoprolol succinate ER 50 mg PO QAM Tobacco use date assessed: 02/22/25 Fall risk assessment: No Falls in past year Last assessed Fall Risk: 02/22/25 Dental Screening Dental Screen Date: 02/22/25 Did you have a dental visit in the last 12 months?: No Did you have a dental problem in the last 6 months where you did not have access to dental care?: No Was dental information given to patient?: Patient has dentist HPI HPI Comments History of Present Illness Details 75-year-old male presents for bilateral ear lavage and review of recent lab results. He admits to taking his medications as prescribed without adverse reactions. Reports diminished hearing to both ears. He denies acute symptoms at this time. [facility] Medical History (Updated 02/22/25 @ 12:21 by Alli Schafer CNP) Memory loss H/O thyroid disease Diabetes Heart palpitations High cholesterol High blood pressure Surgical History (Updated 02/04/25 @ 13:32 by Rita Lopez MA) Hx of CABG History of tonsillectomy History of cholecystectomy Family History (Updated 02/04/25 @ 13:36 by Rita Lopez MA) Father High blood pressure High cholesterol Diabetes Cardiovascular disease Mother H/O thyroid disease Social History (Updated 02/04/25 @ 13:19 by Rita Lopez MA) Housing: Apartment Patient Tobacco Use Status: Never used Tobacco e-Cigarette/Vaping Use: Never Used Second Hand Smoke Exposure: No service: No Current occupational status: retired Current occupational exposures/hazards: No Cognitive needs: No Hearing needs: No Vision needs: Yes Questionnaire PHQ-9 Over the last 2 weeks, how often have you been bothered by any of the following problems? 1. Little interest or pleasure in doing things: not at all 2. Feeling down, depressed, or hopeless: not at all 3. Trouble falling or staying asleep, or sleeping too much: nearly every day 4. Feeling tired or having little energy: not at all 5. Poor appetite or overeating: not at all 6. Feeling bad about yourself - or that you are a failure or have let yourself or your family down: not at all 7. Trouble concentrating on things, such as reading the newspaper or watching television: not at all 8. Moving or speaking so slowly that other people could have noticed. Or the opposite - being so fidgety or restless that you have been moving around a lot more than usual: not at all 9. Thoughts that you would be better off or of hurting yourself in some way: not at all Total score: 3 Depression Screening Interpretation: Negative Depression Screening Done: Yes Source: Developed by Drs. Addi Harden, Lilian Schwarz, Jacoby Guardado and colleagues, with an educational everett from [employer]. Thrive Questionnaire Date Thrive assessed: 02/04/25 I am a: Patient What is your living situation today?: I have a steady place to live Within the past 12 months, did the food you bought not last and you didn't have the money to get more?: Sometimes True Within the past 12 months, did you worry whether your food would run out before you got money to buy more?: Never true Do you have trouble paying for medicines?: No Do you have trouble getting transportation to medical appointments?: No Do you have trouble paying your heating and electricity bill?: No Do you have trouble taking care of your child, family member or friend?: No Do you have trouble with day-to-day activities such as bathing, preparing meals, shopping, managing finances, etc.?: No Are you currently unemployed and looking for a job?: Yes Are you interested in more education?: No Please select the resources that you would like help with: None Currently or been in a relationship where the following occur: No concerns reported THRIVE Score: 1 AUDIT C Alcohol Use Questionnaire (AUDIT-C) 1. How often do you have a drink containing alcohol?: 2-4 times a month 2. How many drinks containing alcohol do you have on a typical day when you are drinking?: 1 or 2 3. How often do you have six or more drinks on one occasion?: Never Total Score: 2 Score Reviewed/Action Taken: Yes LUPE-7 AMB Questionnaire LUPE-7 Date LUPE - 7 assessed: 02/04/25 Feeling nervous, anxious, or on edge: 0 = Not at all Not being able to stop or control worryin = Not at all Worrying too much about different things: 0 = Not at all Trouble relaxin = Not at all Being so restless that it is hard to sit still: 0 = Not at all Becoming easily annoyed or irritable: 0 = Not at all Feeling afraid as if something awful might happen: 0 = Not at all Total LUPE-7 score (0-4 normal; 5-9 mild; 10-14 moderate; 15-21 severe): 0 Source: Developed by Drs. Addi Harden, Lilian Schwarz, Jacoby Guardado and colleagues, with an educational everett from [employer]. Review of Systems Const Details: Const Denies chills, Denies fatigue, Denies fever(s), Denies headache(s) and Denies weakness ENT Reports as per HPI Card Denies chest pain, Denies lightheadedness, Denies dyspnea and Denies other (Palpitations) Resp Denies cough, Denies dyspnea, Denies wheezing and Denies other ( shortness of breath) GI Denies abdominal pain, Denies melena, Denies hematochezia, Denies change in bowel habits, Denies dyspepsia and Denies nausea Denies hematuria and Denies dysuria Musc Denies abnormal gait, Denies myalgias, Denies arthralgias, Denies numbness and Denies tingling Skin/Breast Denies rash, Denies unusual bruising and Denies wounds Neuro Denies abnormal gait, Denies dizziness, Denies headache(s), Denies memory loss, Denies numbness, Denies Sensory deficit (Neuro), Denies tingling and Denies weakness Psych Denies anxiety, Denies depression, Denies memory loss Endo Denies cold intolerance, Denies fatigue, Denies heat intolerance, Denies polydipsia and Denies polyuria Aller/Immun Denies wheezing Physical exam (Primary Care) Vital Signs: Last Vital Signs Temp 97.3 F 02/22/25 12:27 Pulse 52 02/22/25 12:27 Resp 16 02/22/25 12:27 BP 129/60 02/22/25 12:27 Pulse Ox 98 02/22/25 12:27 Oxygen Delivery Method Room Air 02/22/25 12:27 BMI result Body Mass Index 32.0 Tobacco/Smoking Status: Tobacco use Status Tobacco use date assessed 02/22/25 02/22/25 12:47 Patient Tobacco Use Status Never used Tobacco 02/22/25 12:19 e-Cigarette/Vaping Use Never Used 02/22/25 12:19 PHQ-9: PHQ-9 Score PHQ-9: Total score 3 02/22/25 16:14 Depression Screening Interpretation: Negative Thrive Assessment: Date of Thrive Assessment Date Thrive assessed 02/04/25 02/22/25 12:19 Currently or been in a relationship where the following occur: No concerns reported Const Other: General: no acute distress and well developed Nutritional Appearance: well nourished Orientation/consciousness: patient oriented x3 HENMT Head is normocephalic Bilateral ear canal and TM are normal Nasal turbinates and oropharynx are pink and moist Sinuses are nontender with palpation No auricular or cervical lymphadenopathy Eyes General: appearance normal, both eyes and all related structures Pupils: Equal, round and reactive pupils present EOM: EOMs intact bilaterally Resp Effort & Inspection: normal respiratory effort Auscultation: clear to auscultation bilaterally Cardio Rate: regular rate Rhythm: regular rhythm Heart sounds: S1 normal heart sound present, S2 normal heart sound present, no gallops, no murmurs and no rubs GI Palpation (GI): No Abdominal aortic bruit present, Soft to palpation, nontender, No hepatosplenomegaly present and No Rebound tenderness present Auscultation: normal bowel sounds General: Yes no CVA tenderness Back/Spine/Pelvis Back: no CVA tenderness Cervical Spine: cervical ROM normal and No Cervical spine tenderness Thoracic/Lumbar Spine: thoraco-lumbar ROM normal, No pain with thoraco-lumbar ROM, No thoracic spinal tenderness and No lumbar spinal tenderness Extrem General: Yes normal to inspection, No edema and No calf tenderness Skin General: warm and dry. Normal skin color. Normal skin turgor Neuro General: patient oriented x3, gait normal and no focal neuro deficit Cranial nerves: Yes Equal, round and reactive pupils present Cognition (Neuro): normal cognition Gait exam (Neuro): Normal gait present Sensory Exam: No Sensory deficit (Neuro) Psych Appearance: grossly normal Affect: normal affect Attitude: cooperative Thought process: Normal thought process present Coding Level of Care Code Est Pt Level 4 (93946) Diagnoses Hypothyroidism E03.9 Vitamin D deficiency E55.9 Diabetes E11.9 Impacted cerumen of both ears H61.23 Assessment & Plan Assessment & Plan (1) Hypothyroidism: Code(s): E03.9 - Hypothyroidism, unspecified Category: Medical Plan: Recent TSH was slightly elevated, 4.61, free T4 was normal. Levothyroxine was increased to 112 mcg daily. Continue current treatment regimen. Perform lab work and follow-up for a telehealth visit in 6 weeks. Return sooner with symptoms or concerns. Verbalized understanding and agreed with the plan. (2) Vitamin D deficiency: Code(s): E55.9 - Vitamin D deficiency, unspecified Category: Medical Plan: Recent vitamin-D level was low, 25.4. Vitamin D3 25 mcg daily was prescribed. Continue current treatment regimen. Perform blood work a few days before next visit. Follow-up for a telehealth visit in 6 weeks. Verbalized understanding and agreed with the plan. (3) Diabetes: Code(s): E11.9 - Type 2 diabetes mellitus without complications Category: Medical Plan: Recent A1c was elevated, 9.1%. Previous A1c was 9.6% in August per patient. He has a follow-up with endocrinology next month. Advised to take glargine 60 units daily at bedtime. Continue to take Humalog as prescribed. ADA diet and routine exercise encouraged. Followed by [facility]. Verbalized understanding and agreed with the plan. (4) Impacted cerumen of both ears: Code(s): H61.23 - Impacted cerumen, bilateral Category: Medical Plan: Significant amount of cerumen removed from both ears with irrigation and ear current; reports significant hearing improvement after the procedure. Normal ear exam and and TMs following the procedure. Follow-up as needed. Verbalized understanding and agreed with the plan. Orders: Orders Vitamin D 25-OH Total 6 Weeks E55.9 - Vitamin D deficiency, unspecified TSH reflex Free T4 6 Weeks E03.9 - Hypothyroidism, unspecified
[2025-02-22 12:27] VITALS: BP 129/60; PULSE 52; RESP 16; TEMP 36.3; O2SAT 98; BMI 32.0
--- OUTSIDE RECORDS SUMMARY | 2025-02-22 13:58 | XMS_ITS | Clinical Summary ---
Author Organization [facility] Address [address] [place] [address] Phone Care Team Providers Care District Supervisor Name Role Phone Alli Schafer SHAREPOINT CONSULTANT Primary Care Provider +1- [phone] Allergies No known active allergies Medications ezetimibe (ZETIA) 10 mg tablet Take 10 mg by mouth daily. Active atorvastatin (LIPITOR) 80 MG tablet Take 80 mg by mouth daily. 023 Active aspirin 81 MG EC tablet Take 81 mg by mouth daily. Active metoprolol succinate (TOPROL-XL) 50 MG 24 hr tablet Take 50 mg by mouth daily. Active metFORMIN (GLUCOPHAGE-XR) 500 MG 24 hr tablet Take 2,000 mg by mouth daily with dinner. Active empagliflozin (JARDIANCE) 25 mg tabletIndications :Type 2 diabetes mellitus with peripheral neuropathy Take 1 tablet (25 mg total) by mouth daily. 90 tablet 1 024 Active levothyroxine (SYNTHROID, LEVOTHROID) 100 MCG tabletIndications :Acquired hypothyroidism Take 1 tablet (100 mcg total) by mouth every morning. 90 tablet 1 025 Active HUMALOG KWIKPEN INSULIN 100 unit/mL kwikpenIndication s:Type 2 diabetes mellitus with peripheral neuropathy Inject 6 Units under the skin 3 (three) times a day with meals. 15 mL 3 025 Active insulin pen needles, disposable, 32 gauge x 5/32 NdleIndications:T ype 2 diabetes mellitus with peripheral neuropathy 1 each by Miscellaneous route 4 (four) times a day before meals and nightly. 200 each 3 025 Active insulin glargine (LANTUS SOLOSTAR U-100 INSULIN) 100 unit/mL (3 mL) InPn injection penIndications:Ty pe 2 diabetes mellitus with peripheral neuropathy Inject 56-60 Units under the skin once for 1 dose. In the morning 45 mL 025 Active insulin glargine 100 unit/mL (3 mL) InPn injection penIndications:Ty pe 2 diabetes mellitus with peripheral neuropathy Inject 56-60 Units under the skin nightly at bedtime. 60 mL 2 024 2024 Discontinued Active Problems Problem Noted Date Diagnosed Date Osteopenia of multiple sites 05/19/2023 Assessment & Plan (12/09/2023 7:08 PM EDT): See above. No indication for treatment. Discussed importance of adequate calcium, vitamin D intake, regular weightbearing exercises and fall prevention. Repeat DEXA after 04/11/2025 at [facility] Assessment & Plan (05/19/2023 4:40 PM [...] exam is scheduled in 02/2023. He sees cooler tender for routine care every 2 months. Assessment [...] over 250 repeatedly. Scheduled to see his food clerk in December. He is followed by podiatry [...] glucose levels. Up to date with opho. Labs ordered today Acquired hypothyroidism 09/17/2022 Assessment [...] Suggested to add 1000 IU D3 daily [id number]. Will monitor. Assessment & Plan (01/06/2023 9:17 PM EDT): Vitamin D level was low at 28 in 08/2022 when 50,000 units vitamin D2 weekly started. Will recheck level and adjust dose. Avoid over replacement because of risk of worsening hypercalcemia Assessment & Plan (09/17/2022 1:45 PM EDT): Will check levels to determine if medication adjustments are needed Encounters Date Type Department Care Team Description 02/12/2025 Refill [facility] [address] [place] [address] Vibha Workman PA-C Medication Refill from Last 3 Months Social History Tobacco Use Types Packs/Day Years [...] AM EDT Office Visit [facility] [address] [place] [address] Roxane Baltazar MD [address] [place] [address] 04/16/2025 2:30 PM EST Office Visit [facility] [address] [place] [address] Vibha Workman PA-C [address] [place] [phone] 07/22/2025 1:40 PM EST Office Visit [facility] [address] [place] [address] Roxane Baltazar MD [address] [place] [address] [address] [place] [address] [email or web address] Health Maintenance Due Date Last Done Comments [...] 09/17/2022 INFLUENZA VACCINE (#1) 2024 COVID-19 VACCINE ( - season) 2025 BLOOD PRESSURE 04/11/2025 10/09/2024 [...] ORDERABLES Final Res ult Performing Organization Address [facility]/ZIP Co de Phone Number [address] [address] * Comprehensive metabolic panel (09/18/2024 3:57 PM EDT) Blood us Roxane Baltazar MD LAB BLOOD ORDERABLES Final Res ult Performing Organization Address [facility]/ZIP Co de Phone Number [address] [address] * (ABNORMAL) Hemoglobin A1c (09/17/2022 2:11 PM EDT) HEMOGLOBIN A1C 8.6(H) 4.3 - 5.8 % [facility] Blood 09/17/2022 2:11 PM EDT 09/17/2022 2:14 PM EDT Vibha Workman PA-C LAB BLOOD ORDERABL ES Final Result Performing Organization Address [facility] Co de Phone Number [address] [address] from Last 3 Months or Most Recently Relevant to Health Maintenance Insurance MEDICARE PART A & B MEDICARE REPLACEMENT Member Subscriber Plan / Payer (Ef fective 2024-Present) Name:Jose Butt Relation to Subscriber:Self Name:Jose Butt Payer ID:[id number] (NAIC) Group ID:Not on file Type:Medicare Address: [place] [phone] ([place]) [address] [address] MEDICARE PART A & B MEDICARE REPLACEMENT Member Subscriber Plan / Payer (Ef fective 2024-Present) Name:Jose Butt Relation to Subscriber:Self Name:Jose Butt Payer ID:[id number] (NAIC) Group ID:Not on file Type:Medicare Address: [place] [phone] MEDICARE PART A & B Member Subscriber Plan / Payer (Ef fective 2017-Present) Name:Jose Butt Member ID:[id number] Relation to Subscriber:Self Name:Jose Butt Subscriber ID:[id number] Payer ID:[id number] Group ID:Not on file Type:Medicare Address: [employer] [address] [place] [id number] [place] [address] MEDICARE REPLACEMENT MEDICARE PART A & B [facility] MEDICARE REPLACEMENT MEDICARE PART A & B MEDICARE REPLACEMENT MEDICARE PART A & B MEDICARE REPLACEMENT Care Teams District Supervisor Relationship Specialty Start Date End Date Alli Schafer NP [address] [place] [id number] PCP - General Nurse Practitioner 10/09/24 Additional Source Comments The information contained in this document represents components of the legal health record. It is not the complete legal health record.[facility]
--- OUTSIDE RECORDS SUMMARY | 2025-02-22 13:58 | XMS_ITS | Clinical Summary ---
Author Organization [facility] [employer] [facility] Address [address] [place] [address] Phone Care Team Providers Care Hospitalist Medical Director Name Role Phone Alli Schafer PANCHITO Primary Care Provider [phone] Allergies No known active allergies Medications cyanocobalamin, [...] 1 (one) time each day. Active levothyroxine sodium (LEVOTHYROXINE ORAL) Take 112 mcg by mouth 1 (one) time each day. [...] Units under the skin at bedtime. Active cholecalciferol , vitamin D3, (VITAMIN D3 ORAL) Take by mouth. Active Active Problems Problem Noted Date Diagnosed Date Elevated troponin 02/08/2025 Sinus bradycardia 02/08/2025 Assessment & Plan (02/11/2025 10:15 AM EDT): Heart rates in 40s-50s. Asymptomatic. Low threshold to reduce metoprolol. Non-rheumatic aortic stenosis 05/28/2024 Assessment & Plan (02/11/2025 10:15 AM EDT): Mild to moderate by last echocardiogram in November 2024. Continue to monitor by echocardiogram as per ACC standards and as clinically indicated. Type 2 diabetes mellitus without complication Assessment & Plan (05/28/2024 3:42 PM EST): [...] 12 lead Hypertension 04/16/2024 Assessment & Plan (02/11/2025 10:15 AM EDT): Controlled. Continue with diltiazem and metoprolol. Consider ACEi, ARB or ARNI in setting of diabetes. Assessment & Plan (05/28/2024 3:42 PM EST): Blood pressure is well-controlled on his present medical regimen. He is adherent to antihypertensive medical therapy. I am not making any changes in his medical regimen at this time. Orders: ECG 12 lead Hyperlipidemia 04/16/2024 Assessment & Plan (02/11/2025 10:15 AM EDT): Continue with atorvastatin and ezetimibe. Assessment & Plan (05/28/2024 3:42 PM EST): Hyperlipidemia has responded favorably to medical therapy with high-dose atorvastatin and ezetimibe. His last LDL cholesterol was 74 mg/dL. This will be followed by his primary care team. Orders: ECG 12 lead GERD (gastroesophageal reflux disease) CAD (coronary artery disease) 04/16/2024 Overview (02/11/2025): October 2014 cardiac catheterization showing triple-vessel disease completed in the setting of non-STEMI with subsequent three-vessel coronary artery bypass grafting with PARK to LAD, SVG to PDA and SVG to OM 2 December 20, 2024 inpatient echocardiogram showing preserved left ventricular systolic function LVEF 60 to 65% with normal regional wall motion, normal biatrial size, normal right ventricular size and systolic function, mild to moderate aortic stenosis with mean gradient of 18 mmHg and calculated valve area of 1.1 cm , severe MAC with mild mitral stenosis and no other significant findings Assessment & Plan (02/11/2025 10:15 AM EDT): Successful three vessel CABG. Echocardiogram from 2024 showed preserved LV systolic function LVEF 60-65% with no RWMAs. Reassuring workup in November 2024 at [facility]. No anginal symptoms. Continue with aspirin, atorvastatin, diltiazem, empagliflozin, ezetimibe and metoprolol. We discussed risk reduction through lifestyle choices including healthy diet, routine exercise and weight management. Orders: ECG 12 lead Assessment & Plan (05/28/2024 3:42 PM EST): [...] surgery. Orders: ECG 12 lead History of TN (myocardial infarction) 04/16/2024 Encounters Date Type Department Care Team Description 02/12/2025 1:45 PM EDT Office Visit Orthopedic Surgery - [place] [address] [facility] [address] [place] [phone] Carlos Hutchison DPM Controlled type 2 diabetes with neuropathy (CMS/HCC V24, CMS/HCC V28) (Primary Dx); Pain in toes of both feet; Arthritis of both feet; Dermatophytosis, nail 02/11/2025 9:40 AM EDT Office Visit [facility] [address] [place] [phone] Neftali Garner NP Coronary artery disease, unspecified vessel or lesion type, unspecified whether angina present, unspecified whether [place] or transplanted heart (Primary Dx); Sinus bradycardia; Non-rheumatic aortic stenosis; Hypertension, unspecified type; Hyperlipidemia, unspecified hyperlipidemia type 12/24/2024 Telephone [facility] [address] [place] [phone] Jigar Sifuentes MD 12/11/2024 2:00 PM EDT Office Visit Orthopedic Surgery [facility] [address] [facility] [address] [place] [phone] Carlos Hutchison DPM Controlled type 2 diabetes with neuropathy (CMS/HCC V24, CMS/HCC V28) (Primary Dx); Pain in toes of both feet; Arthritis of both feet; Dermatophytosis, nail from Last 3 Months Surgical History Surgery Date Site/Laterality Comments CORONARY ARTERY BYPASS GRAFT PROCEDURE: HISTORICAL CABG COLONOSCOPY 01/12/2014 PROCEDURE: HISTORICAL COLONOSCOPY; COMMENT: neg exam, tiny polyp removed from rectum. Medical History Medical History Date Comments CAD (coronary artery disease) DX :CAD (coronary artery disease) History of TN (myocardial infarction) DX:History of TN (myocardial infarction) Hypertension DX:Hypertension Hyperlipidemia DX:Hyperlipidemi a GERD (gastroesophageal reflux disease) DX:GERD (gastroesophageal reflux disease) H/O Araceli thyroiditis DX:H/O Araceli thyroiditis Type 2 diabetes mellitus wit hout complication DX:Type 2 diabetes mellitus without complication (HCC) KEN (obstructive sleep apnea) DX :KEN (obstructive sleep apnea) Insulin dependent type 2 cheo betes mellitus ([facility] V24, [facility] V28) Hypothyroidism Primary hyperparathyroidism ([facility] V24) Type 2 diabetes mellitus wit h diabetic neuropathy ([facility] V24, [facility] V28) Type 2 diabetes mellitus wit h insulin therapy ([facility] V24, [facility] V28) Vitamin D deficiency Elevated alkaline phosphatase level Family History Medical History Relation Name Comments [...] Sign Reading Time Taken Comments Blood Pressure 138/62 02/11/2025 9:16 AM EDT Pulse 48 02/11/2025 9:16 AM EDT Temperature - - Respiratory Rate - - Oxygen Saturation 98% 02/11/2025 9:16 AM EDT Inhaled Oxygen Concentration - - Weight 85.8 kg (189 lb 1.6 oz) 02/11/2025 9:16 A M EDT Height 164.3 cm (5' 4.7 ) 02/11/2025 9:16 AM EDT Body Mass Index 31.76 02/11/2025 9:16 AM EDT Plan of Treatment Upcoming Encounters Date Type Department Care Team (Late st Contact Info) Description 04/16/2025 1:30 PM EST Ancillary Procedure [facility] [address] [facility] [address] [place] [phone] 04/17/2025 1:45 PM EST Office Visit Orthopedic Surgery - [place] [address] [phone] Carlos Hutchison, DPJaney [address] [address] Health Maintenance Due Date Last Done Comments Diabetes: Annual Foot Exam 02/02/1962 Diabetes: Annual Retina Eye Exam 02/02/1962 Pneumococcal Vaccine: 50+ Years (1 of 2 [...] Annual Urine Albumin-Creatinine Ratio (uACR) 09/19/2025 09/19/2024 DTaP,Tdap,and Td Vaccines (2 - Td or Tdap) 02/04/2035 02/04/2025 HIB Vaccines Aged Out No longer eligi [...] Procedure Name Priority Date/Time Associated Diagnosis Comments ECG 12-LEAD Routine 02/11/2025 10:15 AM EDT Coronary artery disease, unspecified vessel or lesion type, unspecified whether angina present, unspecified whether [place] or transplanted heart ANNUAL BMP BLOOD TEST Routine 09/17/2022 HEMOGLOBIN A1C Routine 09/17/2022 from Last 3 Months or Most Recently Relevant to Health Maintenance Results * ECG 12 lead (02/11/2025 10:15 AM EDT) Ventricular Rate ECG 48 BPM GEMUSE Atrial Rate 48 BPM GEMUSE P-R Interval 194 ms GEMUSE QRS Duration 114 ms GEMUSE Q-T Interval 450 ms GEMUSE QTc 402 ms GEMUSE P Wave [place] 26 degrees GEMUSE R [place] -38 degrees GEMUSE T [place] 23 degrees GEMUSE ECG Interpretation Sinus bradycardia with Premature atrial complexes Left axis deviation Incomplete left bundle branch block Abnormal ECG When compared with ECG of 28-MAY-2024 14:46, Premature atrial complexes are now Present Incomplete left bundle branch block has replaced Incomplete right bundle branch block Criteria for Septal infarct are no longer Present Confirmed by Lázaro PINEDA JAMES ([id number]) on 02/11/2025 12:38:21 PM GEMUSE 02/11/2025 9:28 AM EDT 02/11/2025 12:38 PM EDT Neftali Garner ORGANIZATIONAL EFFECTIVENESS DIRECTOR ECG ORDERABLES Edited Resu lt - Final GEMUSE * Annual BMP Blood Test (09/17/2022) Pathologist [facility] Annual BMP Blood Test Abstracted us Historical Provider HEALTH MAINTENANCE Final Result * Hemoglobin A1c (09/17/2022) Hemoglobin A1C 0.0 % Comment:No interpretation, a bstracted Blood Venous blood specimen / Unknown Historical Provider LAB BLOOD ORDERABLES Aida l Result from Last 3 Months or Most Recently Relevant to Health Maintenance Insurance [employer] MEDICARE [place] [place] MEDICA[place]ANT[place] Care Teams Hospitalist Medical Director Relationship Specialty Start Date End Date Alli Schafer FNP [address] [place] [phone] PCP - General Family Medicine 02/12/25
== END 2025-02-22 13:02 | disposition home or self-care (01) ==
LOC: HO.HMCFM 12:15
PROVIDERS: Visit Provider Nurse Practitioner Family
DX: E03.9 Hypothyroidism, unspecified (principal); E55.9 Vitamin D deficiency, unspecified; E11.9 Type 2 diabetes mellitus without complications; H61.23 Impacted cerumen, bilateral

== ENCOUNTER 2025-03-26 10:18 | Outpatient (REF) | payer OTHER, SELFPAY ==
--- OUTSIDE RECORDS SUMMARY | 2025-03-26 12:37 | XMS_ITS | Clinical Summary ---
Author Organization [facility] Address [address] [place] [address] Phone Care Team Providers Care Laboratory [place] Name Role Phone Alli Schafer PANCHITO Primary Care Provider [phone] Allergies No known active allergies Medications cyanocobalamin, [...] indicated. Type 2 diabetes mellitus without complication Overview (02/27/2025): 02/27/25 Regulatory IMO Update Assessment & Plan (05/28/2024 3:42 PM EST): [...] RWMAs. Reassuring workup in November 2024 at [facility]. No anginal symptoms. Continue with aspirin, atorvastatin, [...] surgery. Orders: ECG 12 lead History of OR (myocardial infarction) 04/16/2024 Encounters Date Type Department Care Team Description 02/12/2025 1:45 PM EDT Office Visit Orthopedic Surgery - [place] [address] [facility] [address] [place] [phone] Carlos Hutchison DPM Controlled type 2 diabetes with neuropathy ([facility] V24, [facility] V28) (Primary Dx); Pain in toes of both feet; Arthritis of both feet; Dermatophytosis, nail 02/11/2025 9:40 AM EDT Office Visit [facility] Cardiology [facility] [address] [place] [address] Neftali Garner NP Coronary artery disease, unspecified vessel or lesion type, unspecified whether angina present, unspecified whether [place] or transplanted heart (Primary Dx); Sinus bradycardia; Non-rheumatic aortic stenosis; Hypertension, unspecified type; Hyperlipidemia, unspecified hyperlipidemia type 12/24/2024 Telephone [facility] [address] [place] [address] Jigar Sifuentes MD from Last 3 Months Surgical History Surgery Date Site/Laterality Comments CORONARY ARTERY BYPASS GRAFT PROCEDURE: HISTORICAL CABG COLONOSCOPY 01/12/2014 PROCEDURE: HISTORICAL COLONOSCOPY; COMMENT: neg exam, tiny polyp removed from rectum. Medical History Medical History Date Comments CAD (coronary artery disease) DX :CAD (coronary artery disease) History of OR (myocardial infarction) DX:History of OR (myocardial infarction) Hypertension DX:Hypertension Hyperlipidemia DX:Hyperlipidemi a GERD (gastroesophageal reflux disease) DX:GERD (gastroesophageal reflux disease) H/O Araceli thyroiditis DX:H/O Araceli thyroiditis Type 2 diabetes mellitus wit hout complication DX:Type 2 diabetes mellitus without complication (HCC) KEN (obstructive sleep apnea) DX :KEN (obstructive sleep apnea) Insulin dependent type 2 cheo betes mellitus ([facility] V24, [facility] V28) Hypothyroidism Primary hyperparathyroidism ([facility] V24) Type 2 diabetes mellitus wit h diabetic neuropathy ([facility] V24, [facility] V28) Type 2 diabetes mellitus wit h insulin therapy ([facility] V24, [facility] V28) Vitamin D deficiency Elevated alkaline phosphatase [...] Description 04/16/2025 1:30 PM EST Ancillary Procedure [facility] - [facility] [address] [facility] [address] [place] [phone] 04/17/2025 1:45 PM EST Office Visit Orthopedic Surgery - [place] [address] [phone] Carlos Hutchison, SHIV [address] [place] [phone] Health Maintenance Due Date Last Done Comments Colorectal Cancer Screening: Colonoscopy 1950 Diabetes: Annual Foot Exam 02/02/1962 Diabetes: Annual Retina Eye Exam 02/02/1962 Pneumococcal Vaccine: 50+ Years (1 of 2 - PCV) 02/02/1971 RSV Immunization Adult Patients (1 - Risk 50-74 years 1-dose series) 02/02/2002 Zoster Vaccines (1 of 2) 02/02/2002 Cholesterol Screening (Lipid Panel) 05/09/2022 Falls Risk Assessment 05/09/2022 Hepatitis C [...] type, unspecified whether angina present, unspecified whether [place] or transplanted heart ANNUAL BMP BLOOD TEST [...] GEMUSE QTc 402 ms GEMUSE P Wave [place] 26 degrees GEMUSE R [place] -38 degrees GEMUSE T [place] 23 degrees GEMUSE ECG Interpretation Sinus bradycardia [...] EDT 02/11/2025 12:38 PM EDT Neftali Garner SERVICE CENTER REPRESENTATIVE ECG ORDERABLES Edited Resu lt - Final GEMUSE * Annual BMP Blood Test (09/17/2022) Annual BMP Blood Test Abstracted Historical Provider HEALTH MAINTENANCE Final Result * Hemoglobin A1c (09/17/2022) Hemoglobin A1C 0.0 % Comment:No interpretation, a bstracted Blood Venous blood specimen / Unknown us Historical Provider LAB BLOOD ORDERABLES Aida l Result from Last 3 Months or Most Recently Relevant to Health Maintenance Insurance [employer] MEDICARE Member Subscriber Plan / Payer (Ef fective 2024-Present) Name:JOSE MACIAS Relation to Subscriber:Self Name:Jose Macias Payer ID:[id number] (NAIC) Type:Not on file Address: [place] [id number] [employer] [place] MED[place] ADVANTAGE [address] [place] [address] Care Teams Laboratory [place] Relationship Specialty Start Date End Date Alli Schafer FNP [address] [place] [phone] PCP - General Family Medicine 02/12/25
--- OUTSIDE RECORDS SUMMARY | 2025-03-26 12:38 | XMS_ITS | Clinical Summary ---
Author Organization [facility] Address [address] [place] [address] Phone Care Team Providers Care Pals Nurse Name Role Phone Alli Schafer TIMBER WATCHMAN Primary Care Provider [phone]- [phone] Allergies No known active allergies Medications ezetimibe [...] mg by mouth daily with dinner. Active levothyroxine (SYNTHROID, LEVOTHROID) 100 MCG tabletIndications :Acquired hypothyroidism Take 1 tablet (100 mcg total) by mouth every morning. 90 tablet 1 10/10/19 25 Active HUMALOG KWIKPEN INSULIN 100 unit/mL kwikpenIndication s:Type 2 diabetes mellitus with peripheral neuropathy Inject 6 Units under the skin 3 (three) times a day with meals. 15 mL 3 10/10/19 25 Active insulin pen needles, disposable, 32 gauge x NdleIndications:T ype 2 diabetes mellitus with peripheral neuropathy 1 each by Miscellaneous route 4 (four) times a day before meals and nightly. 200 each 3 10/10/19 25 Active insulin glargine (LANTUS SOLOSTAR U-100 INSULIN) 100 unit/mL (3 mL) InPn injection penIndications:Ty pe 2 diabetes mellitus with peripheral neuropathy Inject 56-60 Units under the skin once for 1 dose. In the morning 45 mL 02/13/20 25 Active levothyroxine (SYNTHROID, LEVOTHROID) 112 MCG tablet Take 1 tablet by mouth every morning. 03/02/20 25 Active empagliflozin (JARDIANCE) 25 mg tabletIndications :Type 2 diabetes mellitus with peripheral neuropathy Take 1 tablet (25 mg total) by mouth daily. 90 tablet 1 03/14/20 25 Active FREESTYLE VERENA 3 PLUS SENSOR Mariah 1 each by Miscellaneous route every 15 (fifteen) days. 6 each 3 03/14/20 25 Active blood-glucose,rec eiver,cont (FREESTYLE VERENA 3 READER) Misc by Miscellaneous route daily. 1 each 03/14/20 25 Active empagliflozin (JARDIANCE) 25 mg tabletIndications :Type 2 diabetes mellitus with peripheral neuropathy Take 1 tablet (25 mg total) by mouth daily. 90 tablet 1 05/15/20 24 025 Discontin ued(Reord er) Active Problems Problem Noted Date Diagnosed Date Type 2 diabetes mellitus wit h hyperglycemia, with long-term current use of insulin 03/14/2025 Assessment & Plan (03/17/2025 11:54 AM EDT): Control remains poor. Reported A1c 9.2% in 01/2025. His Lantus was increased to 60 units in the morning by PCP 3 weeks ago without much improvement in fasting sugars which are running in the 160s. Humalog added 6 units 3 times a day before meal in 09/2024 what he has been taking consistently right before eating. He remains on 2000 mg of metformin and 25 mg Jardiance daily. No frequent or severe hypoglycemia. -Increase Humalog to 10 units before meals, try to take it about 15 minutes before the start of meal -Patient agreed to use CGM. Several of his friends have been using it with success. Rx on the verena 3+ sent -Follow-up with Naina as scheduled on 04/16/2025 to review sensor download -Continue to work on healthy meal plan, increase physical activity with goal of 30 minutes most days. -Reviewed symptoms, prevention and treatment of hypoglycemia -Call with blood sugar problems -Next labs planned by PCP on 04/08/2025 Osteopenia of multiple sites 05/19/2023 Assessment & Plan (03/17/2025 12:04 PM EDT): On DEXA in 03/2023 osteopenia of the lumbar spine with T-score -1.2 and femoral neck with T-score -1.7. No history of fragility fracture. No indication for treatment. -Discussed importance of adequate calcium, vitamin D intake, regular weightbearing exercises and fall prevention. -[facility] Assessment & Plan (12/09/2023 7:08 PM EDT): See above. No indication for treatment. Discussed importance of adequate calcium, vitamin D intake, regular weightbearing exercises and fall prevention. [facility] Assessment & Plan (05/19/2023 4:40 PM EST): [...] neck with T-score -1.7 Assessment & Plan (03/17/2025 12:02 PM EDT): Labs in August 2022 continued to show [...] T-score -1.7. No history of fragility fractures. No kidney stone. Last labs in our records from 08/2024 showed a normal serum calcium of 10.1 with albumin 4.1, normal phosphorus of 3.1, normal creatinine of 0.84, low 25-OHD of 26.1 and normal PTH of 48. -Waiting for recent lab report -Plan to repeat DEXA after 04/11/2025. Assessment & Plan (06/29/2024 5:57 PM EST): [...] after labs and DEXA reviewed. Hyperlipidemia 09/17/2022 Assessment & Plan (03/17/2025 11:55 AM EDT): Controlled on Zetia and 80 mg of atorvastatin daily. Rx by PCP Hypertension 09/17/2022 Type 2 diabetes mellitus with [...] his glucose levels. Up to date with [facility]. Recent labs reviewed, labs ordered to be [...] and urine microalbumin/creatinine ratio normal as of october. Up-to-date with eye exam, reports frequent blurriness [...] exam is scheduled in 02/2023. He sees member services coordinator for routine care every 2 months. Assessment [...] over 250 repeatedly. Scheduled to see his fish inspector in December. He is followed by podiatry [...] his glucose levels. Up to date with [facility]. Labs ordered today Acquired hypothyroidism 09/17/2022 Assessment & Plan (03/17/2025 11:59 AM EDT): Was slightly under replaced in August with TSH 6.62 while taking 100 mcg levothyroxine 6 days a week. His dose was increased to 100 mcg 7 days a week in September. His current dose is 112 mcg daily, Rx likely by PCP the patient thinks he is still taking the 100 mcg tablet. -Will obtain recent labs from PCP -Confirm current levothyroxine dose Assessment & Plan (10/11/2024 1:13 PM EDT): [...] D deficiency, unspecified 09/17/2022 Assessment & Plan (03/17/2025 12:00 PM EDT): Last 25 OHD level was low at 26.1 in 08/2024. No vitamin D supplement listed. -Would start at least 1000 IU vitamin D3 daily Assessment & Plan (10/11/2024 1:13 PM EDT): [...] Suggested to add 1000 IU D3 daily [id number]. Will monitor. Assessment & Plan (01/06/2023 9:17 [...] Encounters Date Type Department Care Team Description 03/14/2025 11:20 AM EDT Office Visit [facility] [address] [place] [address] [place] [address] Roxane Baltazar MD Type 2 diabetes mellitus with hyperglycemia, with long-term current use of insulin (Primary Dx); Type 2 diabetes mellitus with peripheral neuropathy; Mixed hyperlipidemia; Acquired hypothyroidism; Vitamin D deficiency, unspecified; Primary hyperparathyroidism; Osteopenia of multiple sites 03/14/2025 Telephone [facility] [address] [place] [address] Roxane Baltazar MD Obtain lab results 02/12/2025 Refill [facility] [address] [place] [address] [place] [address] Vibha Workman PA-C Medication Refill from Last [...] Sign Reading Time Taken Comments Blood Pressure 110/64 03/14/2025 11:20 AM EDT Pulse 59 03/14/2025 11:20 AM EDT Temperature 36.5 C (97.7 F) 05/18/2023 2:50 PM EST Respiratory Rate - - Oxygen Saturation 98% 03/14/2025 11:20 AM EDT Inhaled Oxygen Concentration - - Weight 86.6 kg (191 lb) 03/14/2025 11:20 AM EDT Height 164.5 cm (5' 4.76 ) 03/14/2025 11:20 AM E DT Body Mass Index 32.02 03/14/2025 11:20 AM EDT Plan of Treatment Upcoming Encounters Date Type Department Care Team (Late st Contact Info) Description 04/16/2025 2:30 PM EST Office Visit [facility] [address] [place] [address] Vibha Workman PA-C [address] [place] [address] 07/16/2025 1:50 PM EST Office Visit [facility] [address] [place] [address] Vibha Workman PA-C [address] [place] [phone] [email or web address] 10/07/2025 1:00 PM EDT Office Visit [facility] [address] [place] [address] [place] [address] Roxane Baltazar MD [address] [place] [phone] [email or web address] Health Maintenance Due Date Last Done Comments Adult Td,Tdap Booster 1950 DEPRESSION SCREENING 1964 HEPATITIS C SCREENING 02/02/1970 PNEUMOCOCCAL VACCINES (50+ years) (1 of 2 - PCV) 02/02/1971 COLOGUARD 02/02/1997 COLONOSCOPY 02/02/1997 COLORECTAL CANCER SCREENING 02/02/1997 FIT TEST 02/02/1997 FOBT 02/02/1997 SIGMOIDOSCOPY 02/02/1997 VIRTUAL COLONOSCOPY 02/02/1997 RSV VACCINE (1 - Risk 50-74 years 1-dose series) 02/02/2002 ZOSTER VACCINES (1 of 2) 02/02/2002 DIABETIC EYE EXAM 09/17/2022 URINE MICROALBUMIN/CREATININE RATIO 09/17/2022 HEMOGLOBIN A1C 12/17/2022 09/17/2022, 09/17/2022 INFLUENZA VACCINE (#1) 2024 COVID-19 VACCINE ( - season) 2025 BLOOD PRESSURE 09/12/2025 03/14/2025 CREATININE LEVEL 09/18/2025 09/18/2024, , 05/18/2023, Additional [...] with reflex (09/18/2024 3:57 PM EDT) Blood Roxane Baltazar MD LAB BLOOD ORDERABLES Final Res ult Performing Organization Address [facility] de Phone Number [address] [phone] * Comprehensive metabolic panel (09/18/2024 3:57 PM EDT) Blood Roxane Baltazar MD LAB BLOOD ORDERABLES Final Res ult Performing Organization Address [facility] Co de Phone Number [address] [phone] * (ABNORMAL) Hemoglobin A1c (09/17/2022 2:11 PM EDT) HEMOGLOBIN A1C 8.6(H) 4.3 - 5.8 % [facility] Blood 09/17/2022 2:11 PM EDT 09/17/2022 2:14 PM EDT Vibha Workman PA-C LAB BLOOD ORDERABL ES Final Result Performing Organization Address [facility] de Phone Number [address] [phone] from Last 3 Months or Most Recently Relevant to Health Maintenance Insurance MEDICARE PART A & B Member Subscriber Plan / Payer (Ef fective 2017-Present) Name:YudithyaimaJose Member ID:[id number] Relation to Subscriber:Self Name:Camilo Butty Subscriber ID:[id number] Payer ID:[id number] Group ID:Not on file Type:Medicare Address: [facility] [address] [place] [address] MEDICARE REPLACEMENT MEDICARE PART A & B Member Subscriber Plan / Payer (Ef fective 2017-Present) Name:Jose Butt Member ID:[id number] Relation to Subscriber:Self Name:Jose Butt Subscriber ID:[id number] Payer ID:[id number] Group ID:Not on file Type:Medicare Address: [facility] [address] [place] [phone] [place] [address] MEDICARE REPLACEMENT MEDICARE PART A & B Member Subscriber Plan / Payer (Ef fective 2017-Present) Name:Jose Butt Member ID:[id number] Relation to Subscriber:Self Name:Jose Butt Subscriber ID:[id number] Payer ID:[id number] Group ID:Not on file Type:Medicare Address: [facility] [address] [place] [address] MEDICARE REPLACEMENT MEDICARE PART A & B Member Subscriber Plan / Payer (Ef fective 2017-Present) Name:Jose Butt Member ID:[id number] Relation to Subscriber:Self Name:Jose Butt Subscriber ID:[id number] Payer ID:[id number] Group ID:Not on file Type:Medicare Address: [facility] [address] [place] [address] MEDICARE REPLACEMENT MEDICARE PART A & B Member Subscriber Plan / Payer (Ef fective 2017-Present) Name:Jose Butt Member ID:[id number] Relation to Subscriber:Self Name:Jose Butt Subscriber ID:[id number] Payer ID:[id number] Group ID:Not on file Type:Medicare Address: [place] [phone] [facility] MEDICARE REPLACEMENT MEDICARE PART A & B [facility] MEDICARE REPLACEMENT Care Teams Pals Nurse Relationship Specialty Start Date End Date Alli Schafer NP [address] [place] [address] PCP - General Nurse Practitioner 10/09/24 Additional Source Comments The information contained in this document represents components of the legal health record. It is not the complete legal health record.[facility]
[2025-03-26 17:36] LABS: Free T4 (Free Thyroxine) 1.31 ng/dL (0.71-1.85)
== END 2025-03-26 10:19 | disposition home or self-care (01) ==
LOC: HO.WFDLDS 10:18
PROVIDERS: Visit Provider Nurse Practitioner Family
DX: E03.9 Hypothyroidism, unspecified (principal); E55.9 Vitamin D deficiency, unspecified
CPT/HCPCS: 36415; 82306; 84439; 84443

== ENCOUNTER 2025-04-08 15:16 | Outpatient (AMB) | payer OTHER, SELFPAY ==
--- NOTE | 2025-04-08 15:11 | A.OFFPC_ITS ---
Intake Visit Reasons: Tele 6 wks hypothyroidism, vitamin-D deficiency Intake Note: patient here for 6 wks Telehealth follow up for hypothyroidism and vit d deficiency Guinea Pig Breeder Required: No Allergies No Known Allergies Allergy (Verified 04/08/25 15:11) Tobacco use date assessed: 04/08/25 Fall risk assessment: No Falls in past year Last assessed Fall Risk: 04/08/25 Dental Screening Dental Screen Date: 04/08/25 Did you have a dental visit in the last 12 months?: No Did you have a dental problem in the last 6 months where you did not have access to dental care?: No Was dental information given to patient?: No HPI HPI Comments History of Present Illness Details 75-year-old [facility] and vitamin-D deficiency. He admits to taking his medications as prescribed without adverse reactions. He offers no complaints and denies acute symptoms at this time. ON LICENSE OF [facility] Medical History (Updated 02/22/25 @ 12:21 by Alli Schafer CNP) Memory loss H/O thyroid disease Diabetes Heart palpitations High cholesterol High blood pressure Surgical History (Updated 02/04/25 @ 13:32 by NANCY Parker) Hx of CABG History of tonsillectomy History of cholecystectomy Family History (Updated 02/04/25 @ 13:36 by NANCY Parker) Father High blood pressure High cholesterol Diabetes Cardiovascular disease Mother H/O thyroid disease Social History (Updated 02/04/25 @ 13:19 by NANCY Parker) Housing: Apartment Patient Tobacco Use Status: Never used Tobacco e-Cigarette/Vaping Use: Never Used Second Hand Smoke Exposure: No service: No Current occupational status: retired Current occupational exposures/hazards: No Cognitive needs: No Hearing needs: No Vision needs: Yes Questionnaire Thrive Questionnaire Date Thrive assessed: 02/04/25 LUPE-7 AMB Questionnaire LUPE-7 Date LUPE - 7 assessed: 02/04/25 Source: Developed by Drs. Addi Harden, Lilian Schwarz, Jacoby Guardado and colleagues, with an educational everett from [employer]. Review of Systems Const Details: Denies chills, Denies fatigue, Denies fever(s), Denies headache(s) and Denies weakness Cardiac Denies chest pain, Denies claudication, Denies leg edema, Denies lightheadedness, Denies palpitations, Denies dyspnea, Denies dyspnea on exertion, Denies orthopnea and Denies other (Loss of consciousness) Resp Denies cough, Denies excessive phlegm production, Denies dyspnea, Denies dyspnea on exertion, Denies snoring and Denies wheezing Physical exam (Primary Care) Tobacco/Smoking Status: Tobacco use Status Tobacco use date assessed 04/08/25 04/08/25 15:14 Patient Tobacco Use Status Never used Tobacco 04/08/25 15:14 e-Cigarette/Vaping Use Never Used 04/08/25 15:14 Thrive Assessment: Date of Thrive Assessment Date Thrive assessed 02/22/25 04/08/25 15:17 Const Other: Patient is alert and oriented x4 Telehealth Telehealth Telehealth Platform: Telephone Location of provider rendering services: practice address Location of patient: address on file Patient Identification confirmed using: Name, : Yes Telehealth method: voice only Patient verbally consented to treatment: Yes Patient verbally consented to billing insurance company: Yes Patient informed of any privacy concerns related to visit: Yes Coding Level of Care Code Tele Est Pt Level 3 (08005) Diagnoses Hypothyroidism E03.9 Vitamin D deficiency E55.9 Time Spent (min) 10 Assessment & Plan Assessment & Plan (1) Hypothyroidism: Code(s): E03.9 - Hypothyroidism, unspecified Category: Medical Plan: Recent TSH level was low, 0.14, free T4 is normal. Levothyroxine was decreased to 100 mcg daily a day after the results. Continue current treatment regimen. Repeat TSH/T4 blood work a few days before next visit. Follow-up in 6 weeks for transfer of care within new provider, hypothyroidism, and vitamin-D deficiency. Return sooner with symptoms or concerns. Verbalized understanding and agreed with the plan. (2) Vitamin D deficiency: Code(s): E55.9 - Vitamin D deficiency, unspecified Category: Medical Plan: Recent vitamin-D level is low, 28.3. Previous vitamin-D level was 25.4. Vitamin D3 was increased to 50 mcg daily a day after the result. Continue current treatment regimen. Will recheck vitamin-D 3 before his next visit. Verbalized understanding and agreed with the plan. Orders: Orders TSH reflex Free T4 6 Weeks E03.9 - Hypothyroidism, unspecified Vitamin D 25-OH Total 6 Weeks E55.9 - Vitamin D deficiency, unspecified Medications: Changed From metoprolol succinate ER 50 mg PO QAM To metoprolol succinate ER 50 mg PO QAM 90 tabs 0RF 90 days
--- OUTSIDE RECORDS SUMMARY | 2025-04-08 17:23 | XMS_ITS | Clinical Summary ---
Author Organization [facility] Address [address] [place] [address] Phone Care Team Providers Care Pelt Shearer Name Role Phone Alli Schafer PARALEGAL LEGAL SECRETARY Primary Care Provider +1- [phone] Allergies No known active allergies Medications ezetimibe [...] fall prevention. -[facility] Assessment & Plan (12/09/2023 7:08 PM EDT): See above. No indication for treatment. Discussed importance of adequate calcium, vitamin D intake, regular weightbearing exercises and fall prevention. [facility] Assessment & Plan (05/19/2023 4:40 PM EST): [...] his glucose levels. Up to date with [facility]. Recent labs reviewed, labs ordered to be [...] exam is scheduled in 02/2023. He sees cnc laser operator for routine care every 2 months. Assessment [...] over 250 repeatedly. Scheduled to see his drug enforcement administration agent in December. He is followed by podiatry [...] Suggested to add 1000 IU D3 daily [id number]. Will monitor. Assessment & Plan (01/06/2023 9:17 [...] Description 03/14/2025 11:20 AM EDT Office Visit [facility] [address] [place] [address] [place] [address] Roxane Baltazar MD Type 2 diabetes mellitus with hyperglycemia, with long-term current use of insulin (Primary Dx); Type 2 diabetes mellitus with peripheral neuropathy; Mixed hyperlipidemia; Acquired hypothyroidism; Vitamin D deficiency, unspecified; Primary hyperparathyroidism; Osteopenia of multiple sites 03/14/2025 Telephone [facility] [address] [place] [address] Roxane Baltazar MD Obtain lab results 02/12/2025 Refill [facility] [address] [place] [address] [place] [address] Vibha Workman PA-C Medication Refill from Last [...] PM EST Office Visit [facility] [address] [place] [address] Vibha Workman PA-C [address] [place] [address] 07/16/2025 1:50 PM EST Office Visit [facility] [address] [place] [address] Vibha Workman PA-C [address] [place] [phone] [email or web address] 10/07/2025 1:00 PM EDT Office Visit [facility] [address] [place] [address] [place] [address] Roxane Baltazar MD [address] [place] [phone] [email or web address] Health Maintenance Due Date Last Done [...] patient's age to complete this topic IPV VACCINES Aged Out No longer eligi ble [...] PM EDT Acquired hypothyroidism COMPREHENSIVE METABOLIC PANEL (CMP) Routine 09/18/2024 3:57 PM EDT Type 2 diabetes mellitus with peripheral neuropathy HEMOGLOBIN A1C Routine 09/17/2022 2:11 PM EDT Type 2 diabetes mellitus with peripheral neuropathy from Last 3 Months or Most Recently Relevant to Health Maintenance Results * TSH with reflex (09/18/2024 3:57 PM EDT) Blood us Roxane Baltazar MD LAB BLOOD BKR ORDERABLES Final Result Performing Organization Address [facility] Co de Phone Number [address] [phone] * Comprehensive metabolic panel (09/18/2024 3:57 PM EDT) Blood Roxane Baltazar MD LAB BLOOD BKR ORDERABLES Final Result Performing Organization Address [facility]/ZIP Co de Phone Number [address] [phone] * (ABNORMAL) Hemoglobin A1c (09/17/2022 2:11 PM EDT) HEMOGLOBIN A1C 8.6(H) 4.3 - 5.8 % [facility] Blood 09/17/2022 2:11 PM EDT 09/17/2022 2:14 PM EDT Vibha Workman PA-C LAB BLOOD BKR VELIA VELASQUEZ Final Result Performing Organization Address [facility] Co de Phone Number [address] [phone] from Last 3 Months or Most Recently Relevant to Health Maintenance Insurance MEDICARE PART A & B MEDICARE REPLACEMENT MEDICARE PART A & B Member Subscriber Plan / Payer (Ef fective 2017-Present) Name:Jose Butt Member ID:[id number] Relation to Subscriber:Self Name:Jose Butt Subscriber ID:[id number] Payer ID:[id number] Group ID:Not on file Type:Medicare Address: [employer] [address] [place] [address] [place] [address] MEDICARE REPLACEMENT MEDICARE PART A & B [facility] MEDICARE REPLACEMENT MEDICARE PART A & B [facility] MEDICARE REPLACEMENT MEDICARE PART A & B MEDICARE REPLACEMENT MEDICARE PART A & B [id number] MEDICARE REPLACEMENT Care Teams Pelt Shearer Relationship Specialty Start Date End Date Alli Schafer NP [address] [place] [address] PCP - General Nurse Practitioner 10/09/24 Additional Source Comments The information contained in this document represents components of the legal health record. It is not the complete legal health record.[facility]
--- OUTSIDE RECORDS SUMMARY | 2025-04-08 17:23 | XMS_ITS | Clinical Summary ---
Author Organization [facility] ([place], [place]) Speak With Me [facility] Address [address] [place] [address] Phone Care Team Providers Care Perforator Loader Name Role Phone Alli Schafer PANCHITO Primary Care Provider [phone] Allergies No known active allergies Medications cyanocobalamin, [...] RWMAs. Reassuring workup in November 2024 at [facility]. No anginal symptoms. Continue with aspirin, atorvastatin, [...] surgery. Orders: ECG 12 lead History of ME (myocardial infarction) 04/16/2024 Encounters Date Type Department Care Team Description 02/12/2025 1:45 PM EDT Office Visit Orthopedic Surgery - [place] [address] [facility] [place] [id number] Carlos Hutchison DPM Controlled type 2 diabetes with neuropathy ([facility] V24, [facility] V28) (Primary Dx); Pain in toes of both feet; Arthritis of both feet; Dermatophytosis, nail 02/11/2025 9:40 AM EDT Office Visit [facility] [address] [place] [phone] Neftali Garner NP Coronary artery disease, unspecified vessel or lesion type, unspecified whether angina present, unspecified whether [place] or transplanted heart (Primary Dx); Sinus bradycardia; Non-rheumatic aortic stenosis; Hypertension, unspecified type; Hyperlipidemia, unspecified hyperlipidemia type from Last 3 Months Surgical History Surgery Date Site/Laterality Comments CORONARY ARTERY BYPASS GRAFT PROCEDURE: HISTORICAL CABG COLONOSCOPY 01/12/2014 PROCEDURE: HISTORICAL COLONOSCOPY; COMMENT: neg exam, tiny polyp removed from rectum. Medical History Medical History Date Comments CAD (coronary artery disease) DX :CAD (coronary artery disease) History of ME (myocardial infarction) DX:History of ME (myocardial infarction) Hypertension DX:Hypertension Hyperlipidemia DX:Hyperlipidemi a GERD (gastroesophageal reflux disease) DX:GERD (gastroesophageal reflux disease) H/O Araceli thyroiditis DX:H/O Araceli thyroiditis Type 2 diabetes mellitus wit hout complication DX:Type 2 diabetes mellitus without complication (HCC) KEN (obstructive sleep apnea) DX :KEN (obstructive sleep apnea) Insulin dependent type 2 cheo betes mellitus ([facility] V24, [facility] V28) Hypothyroidism Primary hyperparathyroidism ([facility] V24) Type 2 diabetes mellitus wit h diabetic neuropathy ([facility] V24, [facility] V28) Type 2 diabetes mellitus wit h insulin therapy ([facility] V24, [facility] V28) Vitamin D deficiency Elevated alkaline phosphatase [...] Description 04/16/2025 1:30 PM EST Ancillary Procedure [facility] [address] [facility] [address] [place] [address] 04/17/2025 1:45 PM EST Office Visit Orthopedic Surgery - [place] [address] [phone] Carlos Hutchison DPM [address] [address] Health Maintenance Due Date Last Done Comments [...] type, unspecified whether angina present, unspecified whether [place] or transplanted heart ANNUAL BMP BLOOD TEST Routine 09/17/2022 HEMOGLOBIN A1C Routine 09/17/2022 from Last 3 Months or Most Recently Relevant to Health Maintenance Results * ECG 12 lead (02/11/2025 10:15 AM EDT) [facility] Ventricular Rate ECG 48 BPM GEMUSE Atrial Rate 48 BPM GEMUSE P-R Interval 194 ms GEMUSE QRS Duration 114 ms GEMUSE Q-T Interval 450 ms GEMUSE QTc 402 ms GEMUSE P Wave [place] 26 degrees GEMUSE R [place] -38 degrees GEMUSE T [place] 23 degrees GEMUSE ECG Interpretation Sinus bradycardia [...] EDT 02/11/2025 12:38 PM EDT Neftali Garner MANAGER MANAGED CARE ECG ORDERABLES Edited Resu lt - Final GEMUSE * Annual BMP Blood Test (09/17/2022) [facility] Annual BMP Blood Test Abstracted Historical Provider HEALTH MAINTENANCE Final Result * Hemoglobin A1c (09/17/2022) [facility] Hemoglobin A1C 0.0 % Comment:No interpretation, a bstracted Blood Venous blood specimen / Unknown Historical Provider LAB BLOOD ORDERABLES Aida l Result from Last 3 Months or Most Recently Relevant to Health Maintenance Insurance [employer] Care Teams Perforator Loader Relationship Specialty Start Date End Date Alli Schafer FNP [address] [place] [phone] PCP - General Family Medicine 02/12/25
== END 2025-04-08 15:46 | disposition home or self-care (01) ==
LOC: HO.HMCFM 15:17
PROVIDERS: Visit Provider Nurse Practitioner Family
DX: E03.9 Hypothyroidism, unspecified (principal); E55.9 Vitamin D deficiency, unspecified